=== PATIENT | male | born 1955 | race Caucasian/White ===

== ENCOUNTER 2018-11-20 04:56 | Inpatient (IN) ==
--- NOTE | 2018-10-02 11:22 | Anesthesiology Consultation ---
Date of Service October 02, 2018 Assessment & Plan (1) Encounter for pre-operative examination: Chart Review Chart Review: Acceptable Risk for Surgery and Patient seen in Pre Admission Testing Consults Requested cardiac (for abnormal EKG) Patient was seen by [facility] cardio on 11/04/18 for preoperative evaluation after having an abnormal EKG at [facility]. He did have an ECHO done to further evaluate this, and per note from this visit, "Pending the results of the echo, the patient is at an acceptable risk to proceed with surgery from a cardiovascular standpoint." ECHO done later that morning showed nothing concerning. Will proceed with surgery at this point. Teaching & Discussion Pre-Anesthesia Teaching/Discussion Notes: Instructed NPO after midnight before surgery, except medications with 15 cc of water. Medication instructions provided according to the [facility] guidelines. History Surgery Operation Date: 11/20/18 08:50 Proposed Procedures p Bilateral Total Knee Arthroplasty - Kvng Us MD Height/Weight Height: 5 ft 5 in Weight: 81.9 kg Allergies Allergy/AdvReac Type Severity Reaction Status Date / Time No Known Allergies Allergy Verified 10/02/18 11:02 Medications Home Medications Medication Instructions Recorded Confirmed Last Taken naproxen sodium [Aleve] 220 mg PO BID PRN 10/02/18 10/02/18 Unknown Past Medical History Medical History Osteoarthritis Past Surgical History Surgical History History of tooth extraction NO ANESTHESIA USED No significant past surgical history Past Anesthesia History No Family Hx of Anesthesia Complications Patient has never had any anesthesia. Motion Sickness Screening History of Motion Sickness: Yes (Years ago on an amusement park ride. ) Social History Smoking Status: Never smoker Do You Dip or Chew Tobacco: No Hx Alcohol Use: Yes Alcohol type: beer and hard liquor alcohol intake frequency: a few times a week Hx Substance Use: No substance use type: does not use Exercise / Class Metabolic Activity II 4-5 Yardwork/Stairs/Walk up hill (Hunts, rides bicycle in the summer. Able to climb FOS. Denies CP or SOB. ) Review of Systems Patient denies chest pain, shortness of breath, dyspnea on exertion, reflux, cough, wheezing, palpitations. +Joint pain (Knees, wrists) Physical Exam Vital Signs BP: 172/81 (advised - pt states he is always nervous at doctors) P: 62 R: 20 T: 98.1 SPO2: 97% on RA ENMT Thyromental Distance: < 3.5 Finger Breadths (3) Mallampati Class: II Neck normal visual inspection and trachea midline; neck extension not limited Respiratory normal respiratory effort Auscultation: lungs clear to auscultation bilaterally Cardiovascular Rate/Rhythm: regular rate and regular rhythm Heart Sounds: no murmur Vessels: no carotid bruit Neurologic moves all extremities Psychiatric Orientation: alert and oriented x 3 Testing Electrocardiogram Date: 10/02/18 Findings: + NSR @ (63) ST & T wave abnormality, consider inferior ischemia. Chest X-Ray Date: 10/02/18 Findings: + NAD FINDINGS: The cardiac and mediastinal contours are normal. There is no evidence of focal pulmonary consolidation. There is no evidence of failure. No pleural effusions are visualized. There is a prominent left cardiophrenic angle fat pad. IMPRESSION: No active disease in the chest. Echocardiogram Date: 11/04/18 EF: 65-70% LV Function: normal RWMA: + none Other Findings: + LVH (Mild concentric) Valvular Disease: + MR (Mild) INTERPRETATION SUMMARY: 1. Normal left ventricular size and systolic function. EF 65-70%. No regional wall motion abnormalities. Mild concentric left ventricular hypertrophy. 2. Mild left atrial dilation. 3. There is mild mitral regurgitation. 4. Normal estimated right ventricular systolic pressure. Laboratory Results 10/02/18 10:54 10/02/18 10:54 Blood Type B Positive 10/02/18 10:54 Antibody Screen NEGATIVE 10/02/18 10:54 PT 10.6 Seconds (9.0-12.0) 10/02/18 10:54 INR 1.0 (0.9-1.1) 10/02/18 10:54 APTT 25.5 Seconds (21.0-31.0) 10/02/18 10:54 Hemoglobin A1c 6.0 % (4.5-5.6) H 10/02/18 11:54
--- NOTE | 2018-10-02 11:23 | PAT Medication Instructions ---
Medication Instructions Date of Service October 02, 2018 Home Medications naproxen sodium [Aleve] 220 mg PO BID PRN ASK your surgeon for instructions naproxen sodium [Aleve] 220 mg PO BID PRN Take morning of surgery NOTHING TO EAT OR DRINK AFTER MIDNIGHT Other Notes If you have any questions please call us at [phone] or [phone] or [phone] or [phone]
[2018-10-02 11:40] LABS: Basophils # (auto) 0.05 K/uL (0-0.2); Basophils % (auto) 0.8 %; Eosinophils # (auto) 0.13 K/uL (0-0.5); Hematocrit (blood only) 41.3 % (42-52); Hemoglobin 14.7 g/dL (14.0-18.0); Lymphocytes # (auto) 1.62 K/uL (1.2-3.4); Lymphocytes % (auto) 24.5 %; Mean Corpuscular Hgb Conc 35.6 g/dL (32-36); Mean Corpuscular Volume 90.2 fL (80-100); Mean Platelet Volume 9.6 fL (7.4-10.4); Monocytes # (auto) 0.62 K/uL (0.11-0.59); Monocytes % (auto) 9.4 %; Neutrophils # (auto) 4.19 K/uL (1.4-6.5); Neutrophils % (auto) 63.3 %; Platelet Count 223 K/uL (130-400); RDW Coefficient of Variation 13.2 % (11.5-14.5); RDW Standard Deviation 43.3 fL (36.4-46.3); Red Blood Count 4.58 M/uL (4.7-6.1); White Blood Count 6.61 K/uL (4.8-10.8)
[2018-10-02 11:47] LABS: Calcium 8.7 mg/dl (8.5-10.1); Creatinine Clr Calc Pharmacy 99.3 ml/min; Est GFR (African American) 113.2; Est GFR (Non-African American) 97.6; Potassium 3.8 mmol/L (3.5-5.1)
--- NOTE | 2018-10-02 11:50 | XRay Report ---
XR chest Pre-admission PA/Lat CLINICAL HISTORY: Preoperative chest COMPARISON STUDY: No previous studies for comparison. FINDINGS: The cardiac and mediastinal contours are normal. There is no evidence of focal pulmonary co nsolidation. There is no evidence of failure. No pleural effusions are visualized.[ There is a promin ent left cardiophrenic angle fat pad. IMPRESSION: No active disease in the chest. Electronically signed by: Joshua Saleh M.D. 10/02/2018 11:48 AM
[2018-10-02 11:57] LABS: Partial Thromboplastin Ratio 0.9; Partial Thromboplastin Time 25.5 Seconds (21.0-31.0); Prothrombin Time 10.6 Seconds (9.0-12.0)
[2018-10-03 06:44] LABS: Estimated Average Glucose 126 mg/dl
--- NOTE | 2018-11-14 22:03 | History and Physical Report ---
DATE OF ADMISSION: 11/20/2018 CHIEF COMPLAINT: Bilateral knee pain and discomfort. 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 He has got a long history of bilateral knee pain and discomfort; he describes it has just gotten worse over the years. He describes global pain. Both knees hurt about equally. He has been taking NSAIDs, which really do not help at all anymore. He has become more debilitated and having difficulty doing his job. His knees hurt all the time. He has trouble standing for any significant period of time. He has trouble walking any significant distance over a couple blocks. He has difficulty going up and down steps. He has nighttime pain. He would like to have his knees fixed. PAST MEDICAL HISTORY: Significant for mild obesity with BMI of 30. PAST SURGICAL HISTORY: None. ALLERGIES: None. CURRENT MEDICATIONS: Various anti-inflammatory medicines. SOCIAL HISTORY: A 63-year-old male, patient from [place]. 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 Six drinks per week. Does not smoke. FAMILY HISTORY: Noncontributory. REVIEW OF HISTORY: Negative for diabetes, neurologic problems, vascular problems or bleeding disorders. He does have some hand soreness and some CMC joint arthritis. Probably has some carpal tunnel syndrome as well. PHYSICAL EXAMINATION GENERAL: Shows a pleasant, healthy appearing, middle-aged male. Looks to be in pretty good health. HEENT: Benign. NECK: Supple. No lymphadenopathy. LUNGS: Clear to auscultation. HEART: Has a regular rate and rhythm. ABDOMEN: Soft, nontender, nondistended. EXTREMITIES: Grossly neurovascularly intact except as follows: Examination of both knees reveals the patient ambulates independently. He has got varus alignment to both knees with a varus thrust with weightbearing. Range of motion is 5 degrees short of full extension and 120 degrees of flexion bilaterally. There is no instability. He has no pain with hip motion on either side. He is neurologically intact. Good distal pulses. X-RAYS: X-rays of both knees were reviewed. It shows advanced bilateral knee DJD. He has got complete loss of his medial joint space bilaterally. He has got some destruction of the medial tibial plateaus bilaterally. There is some tibial femoral subluxation. He has got osteophytes, most severe in the medial compartment. 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 He has failed conservative treatment and would really like to have both knees replaced. 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 PLAN: We had a long discussion as far as treatment. We talked about the risks and benefits of knee replacement as well as bilateral knee replacements. He is adamant about proceeding with bilateral knee replacements. He is relatively healthy and I did tell him he is at increased risk for complications particularly with thrombosis and cardiac issues and he understands. He is otherwise healthy and he would like to proceed with bilateral knee replacements. The risks and benefits of bilateral knee replacements were explained to the patient including but not limited to DVT, PE, , infection, neurological injury, vascular injury, bleeding problem, pain, limited range of motion, stiffness, failure to relieve symptoms, incomplete relief of symptoms, need for further surgery in the future, fracture, leg length inequality, nerve palsy, etc. The patient understands and desires to proceed. Informed consent was obtained. As far as discharge planning, he is likely going to look into going to either rehab or [facility] facility, will likely have some home health after that.
--- OUTSIDE RECORDS SUMMARY | 2018-11-20 04:59 | External Medical Summary | Continuity of Care Document ---
:1955 Author Name Adriana M.Carolina Address Unavailable Unavailable , Care Team Providers Name Role Phone Unavailable Unavailable Unavailable PCP, UNKNOWN Unavailable Unavailable Problems Bilateral knee pain (719.46) (M25.561) Pre-operative cardiovascular examination (V72.81) (Z01.810) Abnormal ECG (794.31) (R94.31) Allergies and Adverse Reactions No Known Drug Allergies (Allergy) Medications No Reported Medications , M.D. Refills: 0 Procedures Procedures not documented Immunizations Immunizations not documented Social History - Smoking Status Never smoker Plan of Treatment Planned Observations Planned Goals not documented Results No Known Results Results not documented Vital Signs 04-Nov-2018 10:09 Systolic 140 mm[Hg] Comments: Location: RUE; Position: Sitting Diastolic 90 mm[Hg] Comments: Location: RUE; Position: Sitting Height 64 in Heart Rate 76 /min Comments: Location: R Radial; BMI Calculated 30.9 kg/m2 Weight 180 lb BSA Calculated 1.87 m2 Encounters Appointment; Stress, Echocardiogram 1 04-Nov-2018 11:00 Encounter Diagnosis: Problem not documented Appointment; Angelica Ford PA-C 04-Nov-2018 10:00 Encounter Diagnosis: Problem not documented
[2018-11-20] MEDS ORDERED: FAMOTIDINE 20 MG TAB PO SCH (06:00)
[2018-11-20] MEDS ORDERED: GABAPENTIN 300 MG x 2 PO SCH (06:00)
[2018-11-20] MEDS ORDERED: METOCLOPRAMIDE HCL 10 MG TABLET PO SCH (06:00)
[2018-11-20] MEDS ORDERED: SCOPOLAMINE 1.5 MG TDSY TD SCH (06:00)
[2018-11-20] MEDS ORDERED: LR 60ML/HR IV SCH (06:00)
[2018-11-20] MEDS ORDERED: ACETAMINOPHEN 500 MG TAB PO SCH (06:00)
[2018-11-20] MEDS ORDERED: CEFAZOLIN 2000MG 2,000 MG/15 ML SYR IV SCH (06:00)
[2018-11-20] MEDS ORDERED: BUPIVACAINE LIPOSOME/PF 266 MG, BUPIVACAINE/EPINEPHRINE 50 ML, SODIUM CHLORIDE 0.9% 30 ... INFIL SCH (06:00)
[2018-11-20] MEDS ORDERED: LR 500ML BOLUS, THEN 15ML/HR IV SCH (06:00)
[2018-11-20] MEDS ORDERED: PROPOFOL IV EMULSION 10 MG/ML 20 ML VIAL IV ONE ×4 (06:25→09:17)
[2018-11-20] MEDS ORDERED: MIDAZOLAM HCL 1 MG/ML 2ML VIAL ONE ×3 (06:26→07:18)
[2018-11-20] MEDS ORDERED: fentaNYL citrate 100 MCG/2 ML VIAL ONE (06:26)
[2018-11-20] MEDS ORDERED: EPINEPHrine INJ 1 MG/ML AMP ONE ×2 (06:27→06:41)
[2018-11-20] MEDS ORDERED: BUPIVACAINE 0.5 % 5 MG/1 ML PF 10ML VIAL ONE (06:27)
[2018-11-20] MEDS ORDERED: ROPIVACAINE 0.5% 5 MG/ML 30 ML VIAL ONE (06:27)
[2018-11-20] MEDS ORDERED: TRANEXAMIC ACID 1,000 MG **IV Intra-op IV SCH (06:30)
[2018-11-20] MEDS ORDERED: BACITRACIN INJ 50,000 UNIT VIAL ONE ×2 (06:40→06:54)
[2018-11-20] MEDS ORDERED: BUPIVACAINE LIPOSOME 1.3% 266 MG/20 ML VIAL ONE (06:40)
[2018-11-20] MEDS ORDERED: SODIUM CHLORIDE 0.9% PF 50 ML VIAL ONE (06:40)
[2018-11-20] MEDS ORDERED: BUPIVACAINE 0.25% 30 ML VIAL ONE (06:42)
--- NOTE | 2018-11-20 06:49 | History & Physical Bridge Note ---
Date of Service November 20, 2018 History & Physical Bridge Note I have examined the patient, reviewed the History & Physical and in the interval since the performance of the History & Physical I have noted the following changes of clinical significance: no changes noted
[2018-11-20] MEDS ORDERED: HYDROmorphone INJ 1 MG/ML SYRINGE IV PRN (07:05)
[2018-11-20] MEDS ORDERED: PHENYLEPHRINE 100MCG/ML 5ML SYR IV PRN (07:05)
[2018-11-20] MEDS ORDERED: LABETALOL HCL IV 5 MG/ML 20ML IV PRN (07:05)
[2018-11-20] MEDS ORDERED: ATROPINE SULFATE 0.1 MG/ML 10ML SYR IV PRN (07:05)
[2018-11-20] MEDS ORDERED: ePHEDrine sulfate 50 MG/ML AMP IV PRN (07:05)
[2018-11-20] MEDS ORDERED: fentaNYL citrate 100 MCG/2 ML VIAL IV PRN (07:05)
[2018-11-20] MEDS ORDERED: ONDANSETRON INJ 2 MG/ML 2 ML VIAL IV PRN ×2 (07:05→11:06)
[2018-11-20] MEDS ORDERED: PHENYLEPHRINE HCL 10 MG/ML VIAL ONE (07:42)
--- NOTE | 2018-11-20 10:06 | Post Operative Brief Note ---
Immediate Post Op Note v1 Date of Surgery November 20, 2018 Pre & Post Diagnosis Operation Date: 11/20/18 07:00 Pre-Op Diagnosis: Bilateral Knee Degenerative Joint Disease Post-Op Diagnosis: Bilateral Knee Degenerative Joint Disease Procedure Operation Date: 11/20/18 07:00 Actual Procedures p Bilateral Total Knee Replacements(Bilateral) - Kvng Us MD Surgeon Kvng Us MD Insulation Worker Apprentice Jesus, PAC Estimated Blood Loss 100 Findings Consistent with Post-Op Diagnosis Fluids 1800 cc Specimens Bilateral Knees Anesthesia Type Spinal MAC Complications none Disposition Accompanied Patient To Recovery: Yes Disposition: Recovery Room
--- NOTE | 2018-11-20 10:41 | XRay Report ---
XR knee RT 2V routine CLINICAL HISTORY: 63 years-old Male presenting with post-op. TECHNIQUE: Frontal and lateral views of the right knee were obtained. COMPARISON: 10/02/2018. FINDINGS: Interval total right knee arthroplasty with patellar resurfacing. Expected intra-articular and soft t issue emphysema. Overlying skin monty. No periprosthetic lucency or fracture. No malalignment. IMPRESSION: Expected postsurgical appearance status post total right knee arthroplasty with patellar resurfacing. Electronically signed by: Driss Gillis M.D. 11/20/2018 10:40 AM
--- NOTE | 2018-11-20 10:41 | XRay Report ---
XR knee LT 2V routine CLINICAL HISTORY: 63 years-old Male presenting with Post op, bilateral knee arthroplasties. TECHNIQUE: Frontal and lateral views of the left knee were obtained. COMPARISON: 10/02/2018. FINDINGS: Interval postsurgical change of total left knee arthroplasty with patellar resurfacing. Expected intr a-articular and soft tissue emphysema. Overlying skin monty in place. No periprosthetic lucency or fracture. No malalignment. IMPRESSION: Expected postsurgical appearance status post total left knee arthroplasty with patellar resurfacing. Electronically signed by: Driss Gillis M.D. 11/20/2018 10:39 AM
--- NOTE | 2018-11-20 11:00 | Anesthesiology Progress Note ---
Date of Service November 20, 2018 Anesthesia Post Procedure Vital Signs Vital Signs: Temp Pulse Pulse Resp BP Pulse Ox 11/20/18 10:35 36.6 C 61 18 112/67 94 11/20/18 10:25 68 14 121/75 97 11/20/18 10:15 70 15 116/85 99 11/20/18 10:09 36.5 C 78 12 107/87 97 11/20/18 05:40 36.6 C 70 20 163/94 H 95 Pain Intensity Bilateral Knee: Pain Intensity: 2 Transfer of Care Handoff Completed per policy Notes Mental Status: alert / awake / arousable Patient Amnestic to Procedure: Yes Nausea / Vomiting: adequately controlled Pain: adequately controlled Airway Patency, RR, SpO2: stable & adequate BP & HR: stable & adequate Hydration State: stable & adequate Neuraxial Anesthesia: was administered and sensory block is resolving Anesthetic Complications: no major complications apparent and Pt Satisfied with anesthetic care
[2018-11-20] MEDS ORDERED: HYDROmorphone INJ 0.5 MG/0.5 ML SYR IV PRN (11:06)
[2018-11-20] MEDS ORDERED: MAGNESIUM HYDROXIDE SUSP 30 ML UDC PO PRN (11:06)
[2018-11-20] MEDS ORDERED: BISACODYL 10 MG SUPP PR PRN (11:06)
[2018-11-20] MEDS ORDERED: NALOXONE HCL 0.4 MG/1 ML VIAL/CARP IV PRN (11:06)
[2018-11-20] MEDS ORDERED: METOCLOPRAMIDE HCL INJ 5 MG/ML 2 ML VIAL IV PRN (11:06)
[2018-11-20] MEDS ORDERED: ALUMINUM/MAGNESIUM SUSP 30 ML UDC PO PRN (11:06)
[2018-11-20] MEDS ORDERED: TAMSULOSIN HCL 0.4 MG CAP PO PRN (11:06)
[2018-11-20] MEDS ORDERED: OXYCODONE HCL IR 5 MG TAB (IMMEDIATE RELEASE) PO PRN (11:06)
[2018-11-20] MEDS ORDERED: SODIUM CHLORIDE 0.9% 1000ML 1,000 ML IV SCH (11:30)
[2018-11-20] MEDS: ACETAMINOPHEN 500 MG TAB PO SCH ×2 (12:44→22:17)
[2018-11-20] MEDS: KETOROLAC 30 MG/ML VIAL IV SCH ×2 (12:44→17:15)
--- NOTE | 2018-11-20 13:27 | Progress Note ---
DATE: 11/20/2018 SUBJECTIVE: A 63-year-old gentleman postop from bilateral knee replacements. He is doing well. Just starting to have a little bit of discomfort in his legs. Nothing severe. No chest pain or shortness of breath. Not feeling dizzy or lightheaded. OBJECTIVE: VITAL SIGNS: Temperature 36.4. Vital signs stable. GENERAL: Reveals a pleasant, middle-aged male. He is sitting up in bed and eating his lunch and talking to his . LUNGS: Clear to auscultation. HEART: Regular rate and rhythm. ABDOMEN: Soft, nontender, nondistended. EXTREMITIES: Grossly neurovascularly intact except as follows. Examination of both lower extremities reveals the legs to be well aligned. Dressings are clean, dry and intact. He can dorsiflex and plantarflex both feet and all toes appropriately. He is neurologically and vascularly intact on both sides. X-RAYS: X-rays of both knees reveal bilateral cemented posterior stabilized total knee arthroplasty. Components looked to be in good position. Knee alignment looks good. No signs of problems. ASSESSMENT: A 63-year-old gentleman postop from bilateral knee replacements, doing well. His pain is controlled. He is neurologically intact. PLAN: 1. DVT prophylaxis including thigh high TEDs, SCDs and aspirin twice a day. 2. PT/OT. Weight bear as tolerated. Total knee protocol. 3. IV antibiotics x24 hours. 4. Pain control, doing well with current pain regimen. 5. Disposition. He is hoping to be discharged to home with some home health if he does okay in therapy. We will see how things come along. He might need a rehab stay.
[2018-11-20] MEDS: CEFAZOLIN 2000MG 2,000 MG/15 ML SYR IV SCH ×2 (14:22→22:17)
[2018-11-20] MEDS: ASCORBIC ACID 500 MG TAB PO SCH (16:04)
[2018-11-20] MEDS: FERROUS GLUCONATE 324 MG TAB PO SCH (16:04)
[2018-11-20] MEDS: CHECK SCOPOLAMINE PATCH PLACEMENT SCH (16:04)
[2018-11-20] MEDS ORDERED: TRANEXAMIC ACID 1,000 MG in 0.9 % SODIUM CHLORIDE 100 ML IV SCH (16:07)
[2018-11-20] MEDS: DOCUSATE SODIUM 100 MG CAP PO SCH (20:25)
[2018-11-20] MEDS: TAPENTADOL HCL ER 50 MG TABCR PO SCH (20:25)
[2018-11-20] MEDS: ASPIRIN 81 MG ECTAB PO SCH (20:25)
[2018-11-20] MEDS: SENNA 8.6 MG TAB PO SCH (20:25)
[2018-11-21] MEDS: KETOROLAC 30 MG/ML VIAL IV SCH ×5 (00:19→23:58)
[2018-11-21] MEDS: CHECK SCOPOLAMINE PATCH PLACEMENT SCH (00:22)
--- NOTE | 2018-11-21 04:03 | Operative Report ---
DATE OF OPERATION: 11/20/2018 SURGEON: Kvng Us M.D. SILK CREPE MACHINE OPERATOR: Leticia Hurtado PREOPERATIVE DIAGNOSIS: Bilateral knee degenerative joint disease. POSTOPERATIVE DIAGNOSIS: Same. PROCEDURE PERFORMED: Bilateral cemented posterior stabilized total knee arthroplasty. COMPLICATIONS: None. ESTIMATED BLOOD LOSS: 100 mL. FLUID REPLACEMENT: 1800 mL crystalloid fluid replacement. TOURNIQUET TIME: Left side tourniquet: 58 minutes at 300 mmHg. Right side tourniquet: 58 minutes at 300 mmHg. ANESTHESIA: Spinal. DRAINS: None. SPECIMENS: Bilateral knees sent for pathology. 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 He has difficulty walking, weightbearing, kneeling, and doing just functional daily activities. He has been through conservative care without much relief at all. He elected to proceed with surgical treatment. X-rays did reveal advanced bilateral knee DJD. OPERATIVE FINDINGS: Operative findings revealed advanced bilateral knee DJD. Extensive grade 4 [id number] changes primarily in the medial compartment of both knees. He had fixed varus deformities on both sides with medial tibial plateau wear on both sides. A moderate to large knee joint effusions. OPERATIVE IMPLANTS: Left-sided implants consisted of: 1. Biomet Vanguard size 67.5 left posterior stabilized femoral component. 2. Biomet size 75 tibial tray. 3. A 12 mm posterior stabilized polyethylene insert. 4. A 28 x 8 all poly patella. Right-sided implants: 1. A Biomet Vanguard size 67.5 right posterior stabilized femoral component. 2. A Biomet size 75 tibial tray. 3. A 12 mm posterior stabilized polyethylene insert. 4. A 28 x 8 all poly patella. OPERATIVE PROCEDURE: The patient taken to the operating room, identified and placed on the operative table in supine position. All contact areas were appropriately padded. IV antibiotics were provided by the anesthesia team. A spinal anesthetic had been implemented in the holding area. Ba catheter was placed in sterile fashion. Bilateral thigh-high tourniquets were then placed and both lower extremities were then prepped and draped in usual sterile fashion. Attention was first drawn to the left leg. Left leg was elevated and exsanguinated with Esmarch and tourniquet was placed at 300 mmHg. An anterior approach to the left knee was then performed through a longitudinal incision centered over the patella. Sharp dissection was carried through subcutaneous tissues down to the level of the extensor mechanism. A medial parapatellar arthrotomy incision was made. Subperiosteal dissection was carried out medially. I did a pretty extensive dissection medially in order to free up these tight medial side of his knee. The fat pad resected from beneath the patellar tendon. The lateral patellofemoral ligament was released. The patella was everted and knee was flexed. The osteophytes were taken off the distal femur. The ACL and PCL were then released from the distal femur. The tibia subluxated anteriorly. The external tibial alignment jig was then placed in the anterior face of the tibia and adjusted 16 mm medially. Proximal tibial cut was made essentially flush with the most deficient aspect of the medial tibial plateau. Some osteophytes were taken off medial and posteromedially. Tibia was then sized to a size 75. Attention was then drawn to the femur. The distal femur was entered with a sharp drill. Intramedullary canal was suctioned. A 6-degree left intramedullary valgus cutting guide was placed. Distal femoral cutting block was pinned in place. Distal femoral cut was made to take an additional 3 mm of bone off the distal femur. The femur was then sized to a size 67.5. We did downsize this slightly. The AP cutting block was pinned parallel to the epicondylar axis, which was 5 degrees of external rotation. The anterior cut, anterior chamfer, posterior cut, and posterior chamfer cuts were made. Box cutting guide was placed and adjusted slightly lateral and the box cut was made. The knee was flexed. The remnants of the medial and lateral menisci were excised. The osteophytes were taken off the posterior aspect of the femur. A trial femoral component was placed. The tibial tray was pinned in maximum external rotation and the drill and stem punch were used to create defect in proximal tibia for the tibial tray. The knee was then trialed and a 12 mm insert fit most appropriately. Attention was then drawn to the patella. The patella was cleaned of all soft tissues. Patella thickness measured 23 mm in thickness, it was cut down to 13. It was sized to a size 28 patella. Lug holes were drilled for a 28 patella. Lateral osteophyte was removed. Patella button was placed. Knee was taken through range of motion, patella tracked nicely with no thumbs test. Attention was then drawn toward placement of the permanent components. All trial components were removed. A bone plug was placed in the distal femur to limit blood loss. A double batch of Palacos G cement was mixed. A Biomet Vanguard size 67.5 left posterior stabilized femoral component, size 75 tibial tray, 12 mm posterior stabilized polyethylene insert, and a 28 x 8 all poly patella were then cemented in place. Knee was brought out into full extension until cement hardened. A final cement check was then performed. The knee was then injected with 50 mL of a combination of 10 mL of Exparel, 25 mL of 0.5% Marcaine with epinephrine, and 20 mL of normal saline. The patient did receive 1 gram of tranexamic acid. The tourniquet was then let down for final tourniquet time of 58 minutes. Hemostasis was assured with use of electrocautery. Extensor mechanism was then closed with combination of #1 PDS suture and #1 Vicryl suture in a [id number] fashion. Extensor mechanism was checked and found to be intact. The subcutaneous tissue was then closed with 2 Dexon suture in a buried interrupted fashion. Skin was closed with skin monty. Leg was then cleaned, dried, and a sterile dressing of Xeroform, 4 x 4's, sterile cast padding, and an Lino bandage were applied. During closure of the subcutaneous tissues and skin of the left knee, a similar procedure was begun on the right knee. The right leg was elevated and exsanguinated with Esmarch and tourniquet was placed at 300 mmHg. An anterior approach of the right knee was then performed through a longitudinal incision. Sharp dissection was carried through the subcutaneous tissues down to the level of the extensor mechanism. Medial parapatellar arthrotomy incision was made. Some subperiosteal dissection was carried out medially. I did a pretty extensive dissection medially and posteromedially to release the tight medial side. The fat pad resected from beneath the patellar tendon. The lateral patellofemoral ligament was released. The patella was everted and knee was flexed. The osteophytes were taken off the distal femur. The ACL and PCL were released from the distal femur and the tibia subluxated anteriorly. External tibial alignment jig was then placed in the anterior face of the tibia and adjusted 16 mm medially. The proximal tibial cut was made essentially flush with the most deficient aspect of the posteromedial tibial plateau. This did take a fairly large piece off laterally. Some osteophytes were taken off medially. The tibia sized to a size 75. Attention was then drawn to the femur. The distal femur was entered with a sharp drill bit. Intramedullary canal was suctioned. A right 6-degree valgus cutting guide was placed. Distal femoral cutting block was pinned in place. Distal femoral cut was made to take an additional 3 mm of bone off the distal femur. The femur was then sized to a size 67.5. We did downsize this slightly. The AP cutting block was pinned parallel to the epicondylar axis, which was 3 degrees of external rotation. The anterior cut, anterior chamfer, posterior cut, posterior chamfer cuts were made. Box cutting guide was placed and adjusted slightly lateral and the box cut was made. The knee was flexed. The remnants of medial and lateral menisci were excised. The osteophytes were taken off the posterior aspect of the femur. A trial femoral component was placed and the tibial tray was pinned in maximum external rotation and the drill and stem punch were used to create defect in proximal tibia for the tibial tray. The knee was then trialed and the 12 mm insert fit most appropriately. Attention was then drawn to the patella. The patella was cleaned of all soft tissues. Patella thickness measured 23 mm in thickness. It was cut down to 13. It was sized to a size 28 patella. Lug holes were drilled for a 28 patella. Lateral osteophyte was removed. Patella button was placed. Knee was taken through range of motion, patella tracked nicely with no thumbs test. Attention was then drawn toward placement of the permanent components. All trial components were removed. Bone plug was placed in the distal femur to limit blood loss. A double batch of Palacos G cement was mixed. A Biomet Vanguard size 67.5 right posterior stabilized femoral component, size 75 tibial tray, a 12 mm posterior stabilized polyethylene insert, size 28 x 8 all poly patella were then cemented in place. Knee was brought into full extension until cement hardened. A final cement check was then performed. The pericapsular tissues were injected with 50 mL of a combination of 10 mL of Exparel, 25 mL of 0.5% Marcaine with epinephrine and 15 mL of normal saline. The tourniquet was then let down for final tourniquet time of 58 minutes. Hemostasis was assured with use of electrocautery. The extensor mechanism was then closed with a combination of #1 PDS suture and #1 Vicryl suture in [id number] fashion. Extensor mechanism was checked and found to be intact. The subcutaneous tissue was then closed with 2 Dexon suture in a buried interrupted fashion. Skin was closed with skin monty. Leg was then cleaned and dried and a sterile dressing of Xeroform, 4 x 4, sterile cast padding, and Lino bandage were applied. The patient then transferred to the recovery room in stable condition. The patient tolerated the procedure well with no complications. All needle and sponge counts were correct at the end of the operation. I attest to the content of the Intraoperative Record and any orders documented therein. Any exception s are noted below.
[2018-11-21] MEDS: ACETAMINOPHEN 500 MG TAB PO SCH ×3 (05:48→22:26)
[2018-11-21 07:01] LABS: Hematocrit (blood only) 31.8 % (42-52); Hemoglobin 11.3 g/dL (14.0-18.0); Mean Corpuscular Hgb Conc 35.5 g/dL (32-36); Mean Corpuscular Volume 89.6 fL (80-100); Mean Platelet Volume 8.8 fL (7.4-10.4); Platelet Count 191 K/uL (130-400); RDW Coefficient of Variation 13.2 % (11.5-14.5); RDW Standard Deviation 43.4 fL (36.4-46.3); Red Blood Count 3.55 M/uL (4.7-6.1); White Blood Count 7.65 K/uL (4.8-10.8)
[2018-11-21 07:53] LABS: BUN Creatinine Ratio 14.4 (10-20); Est GFR (African American) 108.9; Est GFR (Non-African American) 93.9; Potassium 3.9 mmol/L (3.5-5.1)
--- NOTE | 2018-11-21 08:25 | Anesthesiology Progress Note ---
Date of Service November 21, 2018 Anesthesia Post Procedure Vital Signs Vital Signs: Temp Pulse Pulse Resp BP BP Pulse Ox 11/21/18 06:48 36.6 C 78 18 145/78 H 96 11/21/18 03:29 37.6 C H 77 16 113/69 94 11/20/18 23:00 37.5 C 56 L 16 148/72 H 91 11/20/18 15:03 36.3 C L 54 L 16 174/82 H 98 11/20/18 14:25 54 L 16 153/83 H 96 11/20/18 13:00 52 L 16 162/86 H 97 11/20/18 12:00 47 L 17 169/70 H 95 11/20/18 11:29 44 L 16 134/73 95 11/20/18 11:00 36.4 C L 66 16 131/69 97 11/20/18 10:35 36.6 C 61 18 112/67 94 11/20/18 10:25 68 14 121/75 97 11/20/18 10:15 70 15 116/85 99 11/20/18 10:09 36.5 C 78 12 107/87 97 Pain Intensity Bilateral Knee: Pain Intensity: 2 Transfer of Care Handoff Completed per policy Notes Mental Status: alert / awake / arousable Patient Amnestic to Procedure: Yes Nausea / Vomiting: adequately controlled Pain: adequately controlled Airway Patency, RR, SpO2: stable & adequate BP & HR: stable & adequate Neuraxial Anesthesia: was administered and sensory block is resolving Anesthetic Complications: no major complications apparent Notes: POD #1. Doing well. No complaints. VSS
--- NOTE | 2018-11-21 08:39 | Progress Note ---
DATE: 11/21/2018 SUBJECTIVE: A 63-year-old gentleman postop day 1 from bilateral knee replacement. He is doing well. Really not having much pain. No chest pain or shortness of breath. Not feeling dizzy or lightheaded. OBJECTIVE: VITAL SIGNS: Temperature 36.6. Vital signs stable. GENERAL: Physical examination shows a pleasant, middle-aged male. He is sitting up in his bed eating breakfast. He looks pretty comfortable. EXTREMITIES: Examination of both legs reveals the dressing to be clean, dry and intact. Legs are well aligned. He can dorsiflex and plantarflex both feet appropriately. He is neurologically intact. He has got brisk refill bilaterally. LABORATORY DATA: Hemoglobin 11.3. Hematocrit 31.8. Electrolytes are stable. ASSESSMENT: A 63-year-old gentleman postop day 1 from bilateral knee replacements, doing well. His pain is controlled. He is neurologically intact. PLAN: 1. DVT prophylaxis including thigh-high TEDs, SCDs, and aspirin twice a day. 2. PT/OT. Weightbear as tolerated. Bilateral knee protocol. 3. Pain control, doing well with current pain regimen. 4. Disposition: He is hoping to be discharged to home with some home health once adequately recovered.
[2018-11-21] MEDS: FERROUS GLUCONATE 324 MG TAB PO SCH ×2 (09:08→17:56)
[2018-11-21] MEDS: ASCORBIC ACID 500 MG TAB PO SCH ×2 (09:08→17:56)
[2018-11-21] MEDS: ASPIRIN 81 MG ECTAB PO SCH ×2 (09:08→21:55)
[2018-11-21] MEDS: DOCUSATE SODIUM 100 MG CAP PO SCH ×2 (09:08→21:55)
[2018-11-21] MEDS: MULTIVITAMIN TAB PO SCH (09:09)
[2018-11-21] MEDS: TAPENTADOL HCL ER 50 MG TABCR PO SCH ×2 (09:09→21:55)
[2018-11-21] MEDS: SENNA 8.6 MG TAB PO SCH (21:55)
[2018-11-22] MEDS: ACETAMINOPHEN 500 MG TAB PO SCH (06:07)
[2018-11-22] MEDS: KETOROLAC 30 MG/ML VIAL IV SCH (06:08)
--- NOTE | 2018-11-22 08:41 | Progress Note ---
DATE: 11/22/2018 SUBJECTIVE: A 63-year-old gentleman postop day 2 from bilateral knee replacement. He is doing pretty well. Pain has been controlled. Therapy has gone well. No chest pain or shortness of breath. Not feeling dizzy or lightheaded. OBJECTIVE: VITAL SIGNS: Temperature 37.3. Vital signs stable. GENERAL: Physical examination shows a pleasant, middle-aged male. He is sitting up in bed, looks pretty comfortable. EXTREMITIES: Examination of both legs reveals the leg to be well aligned. Dressing is clean, dry and intact. Calves are soft and supple. He can dorsiflex and plantarflex his feet appropriately. He is neurologically intact. ASSESSMENT: A 63-year-old gentleman postop day 2 from bilateral knee replacements, doing well. His pain is controlled. He is neurologically intact. PLAN: 1. DVT prophylaxis including thigh-high TEDs, SCDs, and aspirin twice a day. 2. PT/OT. Weight bear as tolerated. 3. Bilateral knee replacement protocol. 4. Pain control, doing well with current pain regimen. 5. Disposition: Plan to discharge to home with some home health likely later today.
[2018-11-22] MEDS: FERROUS GLUCONATE 324 MG TAB PO SCH (09:05)
[2018-11-22] MEDS: ASPIRIN 81 MG ECTAB PO SCH (09:05)
[2018-11-22] MEDS: ASCORBIC ACID 500 MG TAB PO SCH (09:05)
[2018-11-22] MEDS: DOCUSATE SODIUM 100 MG CAP PO SCH (09:05)
[2018-11-22] MEDS: MULTIVITAMIN TAB PO SCH (09:05)
[2018-11-22] MEDS: TAPENTADOL HCL ER 50 MG TABCR PO SCH (09:05)
--- NOTE | 2018-11-24 01:21 | Discharge Summary ---
ADMITTING PHYSICIAN AND SURGEON: Kvng Us MD. ADMITTING DIAGNOSIS: Bilateral knee degenerative joint disease. SURGERY PERFORMED: Bilateral total knee arthroplasty. SECONDARY DIAGNOSIS: Mild obesity. CONSULTS: None obtained. HISTORY AND PHYSICAL EXAMINATION: Well documented in the patient's chart. HOSPITAL COURSE: The patient was admitted on 11/20/2018 underwent bilateral total knee arthroplasty, tolerated the procedure well. There were no complications. He was transferred to the PACU postoperatively and later to the orthopedic floor for further care. He was given Ancef for antibiotic prophylaxis, GAURI stockings, SCDs and aspirin for DVT prophylaxis. Hemoglobin, hematocrit and vital signs were monitored during his hospital stay and remained stable, did not require any blood transfusions. There were no complications. By postoperative day 2, he was tolerating a regular diet, pain was controlled with oral pain medicine. He was participating in physical therapy. On postop day 2, he was discharged home, set up with home health services, he is given printed discharge instructions including new prescriptions for Extra Strength Tylenol, aspirin and oxycodone. Continue his home medication, continue physical therapy, weightbearing as tolerated, GAURI stockings. Follow up approximately 2 weeks postop or sooner if there are any problems or concerns.
== END 2018-11-22 11:50 | disposition home health service (06) | DRG 462 ==
LOC: PAT 04:56 → ASU 04:56 → 3E 10:09

== ENCOUNTER 2021-05-31 23:22 | Observation (INO) ==
[2021-05-31] MEDS ORDERED: SODIUM CHLORIDE 0.9% 500 ML IV ONE (23:38)
--- NOTE | 2021-05-31 23:45 | Emergency Department Note ---
History of Present Illness General Chief complaint: Cough Stated complaint: [id number] APPETITE Time Seen by Provider: 05/31/21 23:33 History of Present Illness Maximum Pain Intensity: 9 This 65-year-old presents to the ER complaining of flu-like illness Location: Generalized Quality: Congested Severity: Moderate Duration: Past few weeks Timing: Started few weeks ago Context: Symptoms got worse and patient came in Modifying factors: better with rest; worse with activity Patient is unvaccinated for Covid and influenza. Has been around other sick people. He does not know they have had Covid. Patient complains of cough, congestion, dyspnea and generalized illness. Patient states he is healthy with no active medical problems besides high cholesterol. Patient denies tobacco use. No drug use. Home Medications Medication Instructions Recorded Confirmed Type naproxen sodium 220 mg tablet 220 - 440 mg PO DAILY PRN 10/02/18 06/01/21 History (Aleve) amoxicillin 500 mg tablet 2,000 mg PO UD 06/01/21 06/01/21 History rosuvastatin 10 mg tablet 10 mg PO DAILY 06/01/21 06/01/21 History Allergies Allergy/AdvReac Type Severity Reaction Status Date / Time No Known Allergies Allergy Verified 06/01/21 00:37 Past Med/Surg History Medical History (Updated 06/01/21 @ 02:28 by Bernarda Clinton PA-C) Osteoarthritis Temporomandibular joint disorder "NOT TOO BAD" Surgical History History of tooth extraction NO ANESTHESIA USED History of total knee replacement BILAT Social History Smoking Status: Never smoker Second Hand Exposure: No; Hx Alcohol Use: Yes Alcohol type: beer, wine and hard liquor Hx Substance Use: No Preferred Language: Albanian Communication Ability: Effective Purchasing Intern Required: No Beliefs That Will Affect Care: None Current Living Situation: Spouse Feels Safe at Home: Yes Assistive Devices: Glasses Review of Systems A total of 10 systems reviewed and were otherwise negative Physical Exam Vital Signs Vital Signs - 24 hr 05/31/21 23:25 06/01/21 01:02 06/01/21 01:10 Temperature 36.5 C Temperature Source Temporal Artery Scan Pulse Rate 110 H 92 H Pulse Rate [Finger] Pulse Rate from SpO2 Sensor 92 H Respiratory Rate 24 Respiratory Effort / Characteristics Non-Labored Respiratory Depth Blood Pressure 168/105 H Blood Pressure [Left Arm] Blood Pressure Mean 126 Blood Pressure Mean [Left Arm] Pulse Oximetry 92 92 92 Oxygen Delivery Method Room Air Sepsis New/Unexplained Change in Mental Status N/A Sepsis Action Taken by Nursing No Action Required 06/01/21 01:20 06/01/21 01:45 06/01/21 01:46 Temperature Temperature Source Pulse Rate 88 Pulse Rate [Finger] 94 H Pulse Rate from SpO2 Sensor 89 Respiratory Rate 20 Respiratory Effort / Characteristics Non-Labored Respiratory Depth Normal Blood Pressure Blood Pressure [Left Arm] 179/98 H Blood Pressure Mean Blood Pressure Mean [Left Arm] 125 Pulse Oximetry 93 91 94 Oxygen Delivery Method Room Air Sepsis New/Unexplained Change in Mental Status Sepsis Action Taken by Nursing 06/01/21 01:48 06/01/21 01:50 06/01/21 02:00 Temperature Temperature Source Pulse Rate 94 H 94 H Pulse Rate [Finger] Pulse Rate from SpO2 Sensor 94 H Respiratory Rate 20 Respiratory Effort / Characteristics Respiratory Depth Blood Pressure 157/95 H Blood Pressure [Left Arm] Blood Pressure Mean 115 Blood Pressure Mean [Left Arm] Pulse Oximetry 94 94 93 Oxygen Delivery Method Room Air Sepsis New/Unexplained Change in Mental Status Sepsis Action Taken by Nursing 06/01/21 02:10 06/01/21 02:17 06/01/21 02:20 Temperature Temperature Source Pulse Rate 94 H 94 H Pulse Rate [Finger] Pulse Rate from SpO2 Sensor 92 H 93 H Respiratory Rate 46 H 20 45 H Respiratory Effort / Characteristics Non-Labored Spontaneous Respiratory Depth Blood Pressure Blood Pressure [Left Arm] Blood Pressure Mean Blood Pressure Mean [Left Arm] Pulse Oximetry 93 94 93 Oxygen Delivery Method Room Air Sepsis New/Unexplained Change in Mental Status Sepsis Action Taken by Nursing 06/01/21 02:27 06/01/21 02:45 Temperature Temperature Source Pulse Rate Pulse Rate [Finger] 96 H Pulse Rate from SpO2 Sensor Respiratory Rate 22 Respiratory Effort / Characteristics Non-Labored Spontaneous Spontaneous Respiratory Depth Blood Pressure Blood Pressure [Left Arm] Blood Pressure Mean Blood Pressure Mean [Left Arm] Pulse Oximetry 94 93 Oxygen Delivery Method Room Air Room Air Sepsis New/Unexplained Change in Mental Status Sepsis Action Taken by Nursing VITALS: Vitals are noted on the nurse's note and reviewed by myself. Vital signs pulse ox 92% on room air. GENERAL: White male coughing appears mildly ill, in no acute distress, nondiaphoretic, well-developed well-nourished. SKIN: The skin was without rashes, erythema, edema, or bruising. There is no tenting of the skin. Capillary reflex less than 2 seconds. HEAD: Normocephalic atraumatic. EARS: External auditory canals clear EYES: Pupils equal round and reactive to light and accommodation. Conjunctivae without injection, sclerae without icterus. Extraocular movements intact. NOSE: Patent, turbinates without inflammation or discharge. MOUTH: Mucous membranes moist. Pharynx without erythema or exudate. Uvula midline. Airway patent. Tongue does not deviate. NECK: Supple without nuchal rigidity. No lymphadenopathy. No thyromegaly. Cervical spine is nontender. No JVD. HEART: Regular rate and rhythm LUNGS: Clear to auscultation bilaterally without wheezes, rales or rhonchi. No retractions or accessory muscle use. ABDOMEN: Positive bowel sounds x 4. Normal tympanic percussion. Soft, nontender, without masses or organomegaly. Salmon sign negative. No guarding or rebound tenderness. No CVA tenderness MUSCULOSKELETAL: No muscle atrophy, erythema, or edema noted. NEURO: Patient was alert and oriented to person place and time. Normal sensation to light and sharp touch. No focal neurological deficits. Course Administered Medications Discontinued Medications Albuterol (Albut/Ipratrop 3mg/0.5mg Neb 3 Ml Vial) 3 ml NEB NOW STA Stop: 06/01/21 02:30 Last Admin: 06/01/21 02:45 Dose: 3 ml Documented by: [id number] Sodium Chloride (Nss) 500 mls @ 999 mls/hr IV .Q31M ONE Stop: 06/01/21 00:08 Last Infusion: 06/01/21 02:07 Dose: 0 mls/hr Documented by: [id number] Admin: 06/01/21 00:55 Dose: 999 mls/hr Documented by: [id number] Medical Decision Making Medical Records Attestation: I reviewed the patient's medical records. Home Medications Current Medication List: was personally reviewed by me Laboratory Data Attestation: I reviewed the patient's lab results. Result diagrams: 06/01/21 00:45 06/01/21 00:45 Lab Results 06/01/21 06/01/21 06/01/21 Range/Units 00:45 00:45 00:45 WBC 13.80 H (4.8-10.8) K/uL RBC 4.56 L (4.7-6.1) M/uL Hgb 14.4 (14.0-18.0) g/dL Hct 41.4 L (42-52) % MCV 90.8 (80-100) fL MCH 31.6 (25-34) pg MCHC 34.8 (32-36) g/dL RDW Std Deviation 43.0 (36.4-46.3) fL RDW Coeff of Ilana 12.8 (11.5-14.5) % Plt Count 409 H (130-400) K/uL MPV 8.6 (7.4-10.4) fL Immature Gran % (Auto) 0.3 % Neut % (Auto) 76.4 % Lymph % (Auto) 9.6 % [place] % (Auto) 13.6 % Eos % (Auto) 0.0 % Baso % (Auto) 0.1 % Neut # (Auto) 10.54 H (1.4-6.5) K/uL Lymph # (Auto) 1.33 (1.2-3.4) K/uL [place] # (Auto) 1.88 H (0.11-0.59) K/uL Eos # (Auto) 0.00 (0-0.5) K/uL Baso # (Auto) 0.01 (0-0.2) K/uL Immature Gran # (Auto) 0.04 H (0.00-0.02) K/uL PT (9.0-12.0) Seconds INR (0.9-1.1) APTT (21.0-31.0) Seconds PTT Ratio Sodium 133 L (136-145) mmol/L Potassium 3.7 (3.5-5.1) mmol/L Chloride 101 (98-107) mmol/L Carbon Dioxide 25 (21-32) mmol/L Anion Gap 7.0 (3-11) BUN 6 L (7-18) mg/dl Creatinine 0.68 (0.6-1.4) mg/dl Est Cr Clr Drug Dosing 93.0 ml/min Est GFR ( Amer) 115.3 ml/min Est GFR (Non-Af Amer) 99.5 ml/min BUN/Creatinine Ratio 8.2 L (10-20) Glucose 131 H (70-99) mg/dl Lactate (0.4-2.0) mmol/L Calcium 9.4 (8.5-10.1) mg/dl Magnesium 2.3 (1.8-2.4) mg/dl Total Bilirubin 1.0 (0.2-1) mg/dl AST 32 (15-37) U/L ALT 71 (12-78) U/L Alkaline Phosphatase 67 (45-117) U/L Troponin I < 0.015 (0-0.045) ng/ml Total Protein 8.9 H (6.4-8.2) gm/dl Albumin 3.2 L (3.4-5.0) gm/dl Globulin 5.7 H (2.5-4.0) gm/dl Albumin/Globulin Ratio 0.6 L (0.9-2) Procalcitonin < 0.05 (0-0.5) ng/ml Urine Color Urine Appearance (Clear) Urine pH (4.5-7.5) Ur Specific [place] (1.000-1.030) Urine Protein (Negative) Urine Glucose (UA) (Negative) Urine Ketones (Negative) Urine Blood (Negative) Urine Nitrite (Negative) Urine Bilirubin (Negative) Urine Urobilinogen (Negative) Ur Leukocyte Esterase (Negative) Adenovirus (PCR) (NotDetected) B. pertussis DNA (PCR) (NotDetected) B.parapertussis DNA PCR (NotDetected) C. pneumoniae DNA (PCR) (NotDetected) Coronavirus OC43 (PCR) (NotDetected) Coronavirus HKU1 (PCR) (NotDetected) Coronavirus 229E (PCR) (NotDetected) SARS-CoV-2 (PCR) (Negative) Coronavirus NL63 (PCR) (NotDetected) Human Metapneumovir PCR (NotDetected) Influenza Type A (PCR) (NotDetected) Influ A Molecular Assay (Negative) Influenza Type B (PCR) (NotDetected) Influ B Molecular Assay (Negative) M. pneumoniae (PCR) (NotDetected) Parainfluenza 1 (PCR) (NotDetected) Parainfluenza 2 (PCR) (NotDetected) Parainfluenza 3 (PCR) (NotDetected) Parainfluenza 4 (PCR) (NotDetected) RSV (PCR) (NotDetected) Entero/Rhino (PCR) (NotDetected) 06/01/21 06/01/21 06/01/21 Range/Units 00:45 00:45 00:45 WBC (4.8-10.8) K/uL RBC (4.7-6.1) M/uL Hgb (14.0-18.0) g/dL Hct (42-52) % MCV (80-100) fL MCH (25-34) pg MCHC (32-36) g/dL RDW Std Deviation (36.4-46.3) fL RDW Coeff of Ilana (11.5-14.5) % Plt Count (130-400) K/uL MPV (7.4-10.4) fL Immature Gran % (Auto) % Neut % (Auto) % Lymph % (Auto) % [place] % (Auto) % Eos % (Auto) % Baso % (Auto) % Neut # (Auto) (1.4-6.5) K/uL Lymph # (Auto) (1.2-3.4) K/uL [place] # (Auto) (0.11-0.59) K/uL Eos # (Auto) (0-0.5) K/uL Baso # (Auto) (0-0.2) K/uL Immature Gran # (Auto) (0.00-0.02) K/uL PT 11.4 (9.0-12.0) Seconds INR 1.1 (0.9-1.1) APTT 28.0 (21.0-31.0) Seconds PTT Ratio 1.1 Sodium (136-145) mmol/L Potassium (3.5-5.1) mmol/L Chloride (98-107) mmol/L Carbon Dioxide (21-32) mmol/L Anion Gap (3-11) BUN (7-18) mg/dl Creatinine (0.6-1.4) mg/dl Est Cr Clr Drug Dosing ml/min Est GFR ( Amer) ml/min Est GFR (Non-Af Amer) ml/min BUN/Creatinine Ratio (10-20) Glucose (70-99) mg/dl Lactate 1.1 (0.4-2.0) mmol/L Calcium (8.5-10.1) mg/dl Magnesium (1.8-2.4) mg/dl Total Bilirubin (0.2-1) mg/dl AST (15-37) U/L ALT (12-78) U/L Alkaline Phosphatase (45-117) U/L Troponin I (0-0.045) ng/ml Total Protein (6.4-8.2) gm/dl Albumin (3.4-5.0) gm/dl Globulin (2.5-4.0) gm/dl Albumin/Globulin Ratio (0.9-2) Procalcitonin (0-0.5) ng/ml Urine Color Urine Appearance (Clear) Urine pH (4.5-7.5) Ur Specific [place] (1.000-1.030) Urine Protein (Negative) Urine Glucose (UA) (Negative) Urine Ketones (Negative) Urine Blood (Negative) Urine Nitrite (Negative) Urine Bilirubin (Negative) Urine Urobilinogen (Negative) Ur Leukocyte Esterase (Negative) Adenovirus (PCR) (NotDetected) B. pertussis DNA (PCR) (NotDetected) B.parapertussis DNA PCR (NotDetected) C. pneumoniae DNA (PCR) (NotDetected) Coronavirus OC43 (PCR) (NotDetected) Coronavirus HKU1 (PCR) (NotDetected) Coronavirus 229E (PCR) (NotDetected) SARS-CoV-2 (PCR) NEGATIVE (Negative) Coronavirus NL63 (PCR) (NotDetected) Human Metapneumovir PCR (NotDetected) Influenza Type A (PCR) (NotDetected) Influ A Molecular Assay (Negative) Influenza Type B (PCR) (NotDetected) Influ B Molecular Assay (Negative) M. pneumoniae (PCR) (NotDetected) Parainfluenza 1 (PCR) (NotDetected) Parainfluenza 2 (PCR) (NotDetected) Parainfluenza 3 (PCR) (NotDetected) Parainfluenza 4 (PCR) (NotDetected) RSV (PCR) (NotDetected) Entero/Rhino (PCR) (NotDetected) 06/01/21 06/01/21 06/01/21 Range/Units 00:45 00:45 00:45 WBC (4.8-10.8) K/uL RBC (4.7-6.1) M/uL Hgb (14.0-18.0) g/dL Hct (42-52) % MCV (80-100) fL MCH (25-34) pg MCHC (32-36) g/dL RDW Std Deviation (36.4-46.3) fL RDW Coeff of Ilana (11.5-14.5) % Plt Count (130-400) K/uL MPV (7.4-10.4) fL Immature Gran % (Auto) % Neut % (Auto) % Lymph % (Auto) % [place] % (Auto) % Eos % (Auto) % Baso % (Auto) % Neut # (Auto) (1.4-6.5) K/uL Lymph # (Auto) (1.2-3.4) K/uL [place] # (Auto) (0.11-0.59) K/uL Eos # (Auto) (0-0.5) K/uL Baso # (Auto) (0-0.2) K/uL Immature Gran # (Auto) (0.00-0.02) K/uL PT (9.0-12.0) Seconds INR (0.9-1.1) APTT (21.0-31.0) Seconds PTT Ratio Sodium (136-145) mmol/L Potassium (3.5-5.1) mmol/L Chloride (98-107) mmol/L Carbon Dioxide (21-32) mmol/L Anion Gap (3-11) BUN (7-18) mg/dl Creatinine (0.6-1.4) mg/dl Est Cr Clr Drug Dosing ml/min Est GFR ( Amer) ml/min Est GFR (Non-Af Amer) ml/min BUN/Creatinine Ratio (10-20) Glucose (70-99) mg/dl Lactate (0.4-2.0) mmol/L Calcium (8.5-10.1) mg/dl Magnesium (1.8-2.4) mg/dl Total Bilirubin (0.2-1) mg/dl AST (15-37) U/L ALT (12-78) U/L Alkaline Phosphatase (45-117) U/L Troponin I (0-0.045) ng/ml Total Protein (6.4-8.2) gm/dl Albumin (3.4-5.0) gm/dl Globulin (2.5-4.0) gm/dl Albumin/Globulin Ratio (0.9-2) Procalcitonin (0-0.5) ng/ml Urine Color Yellow Urine Appearance Clear (Clear) Urine pH 7.0 (4.5-7.5) Ur Specific [place] 1.038 H (1.000-1.030) Urine Protein Negative (Negative) Urine Glucose (UA) Negative (Negative) Urine Ketones 1+ H (Negative) Urine Blood Negative (Negative) Urine Nitrite Negative (Negative) Urine Bilirubin Negative (Negative) Urine Urobilinogen Negative (Negative) Ur Leukocyte Esterase Negative (Negative) Adenovirus (PCR) Not Detected (NotDetected) B. pertussis DNA (PCR) Not Detected (NotDetected) B.parapertussis DNA PCR Not Detected (NotDetected) C. pneumoniae DNA (PCR) Not Detected (NotDetected) Coronavirus OC43 (PCR) Not Detected (NotDetected) Coronavirus HKU1 (PCR) Not Detected (NotDetected) Coronavirus 229E (PCR) Not Detected (NotDetected) SARS-CoV-2 (PCR) Not Detected (Negative) Coronavirus NL63 (PCR) Not Detected (NotDetected) Human Metapneumovir PCR Not Detected (NotDetected) Influenza Type A (PCR) Not Detected (NotDetected) Influ A Molecular Assay Negative (Negative) Influenza Type B (PCR) Not Detected (NotDetected) Influ B Molecular Assay Negative (Negative) M. pneumoniae (PCR) Not Detected (NotDetected) Parainfluenza 1 (PCR) Not Detected (NotDetected) Parainfluenza 2 (PCR) Not Detected (NotDetected) Parainfluenza 3 (PCR) Not Detected (NotDetected) Parainfluenza 4 (PCR) Not Detected (NotDetected) RSV (PCR) Not Detected (NotDetected) Entero/Rhino (PCR) Not Detected (NotDetected) Imaging Data Attestation: I personally reviewed and interpreted this imaging study as follows: MDM Narrative Prior records/ancillary studies reviewed. Triage Nursing notes reviewed. Additional history obtained from nursing. The patient's history was concerning for cold symptoms Differential diagnosis: Etiologies such as viral syndrome, pharyngitis, Covid, sepsis, bacteremia, bronchitis, allergies, otitis, pneumonia, influenza, as well as others were entertained. ER treatment provided: IV fluids, nebulizer, heparin, Zosyn On reassessment the patient felt better. Diagnostics interpreted by me: EKG: Ordered for weakness EKG: Normal sinus, T wave inversions in inferior leads, no ST depression in the lateral leads, rate of 95. Impression normal sinus rhythm with ST depression in T wave inversions interpreted by myself I think arrhythmia is unlikely. EKG shows normal sinus rhythm with no interval abnormalities such as QT prolongation or WPW. There are no findings to suggest Brugada syndrome. Cardiac monitoring in the emergency department reveals no tachycardic or bradycardic dysrhythmia. Hypertrophic cardiomyopathy was considered but there are no clear historical elements pointing toward this. EKG is not suggestive. The QRS voltage is not extremely large and there are no suggestive Q waves. The labs revealed leukocytosis Pending blood cultures Mild hyperglycemia without DKA Initial Covid test was negative, after reviewing the CAT scan the bio fire was ordered as there was concern for atypical infection Negative lactic. Negative procalcitonin Imaging studies: CTA CHEST: Pulmonary emboli of the segmental branches of the right lower and middle lobes. Patchy bilateral airspace opacities are most consistent with atypical infection. Superimposed infarcts of the right middle and lower lobes cannot be excluded. Heart size is within normal limits. No pathologically enlarged lymph nodes. The esophagus is fluid-filled. No fracture. Radiologist: Andreina Cannon MD Study ready at 01:49 and initial results transmitted at 02:10 Communications: Clear Time Type Notes Call Doctor Pulmonary Embolism Consultation: A consultation was placed with [facility] hospitalist. Case was discussed and will be admitted. They are recommending heparin. PESI Score Age: 65 Male gender: 10 History of cancer: 0 Heart failure: 0 Chronic lung disease: 0 Pulse =110/min: 20 Systolic blood pressure <100 mmH Respiratory rate =30/min: 20 Temperature <36 Celcius: 0 Altered mental status: 0 Arterial oxygen saturation <90 percent: 0 Total: 116 Class I Low risk <66 Class II 66 to 85 Class III High risk 86 to 105 Class IV 106 to 125 Class V >125 CURB Score: Confusion: 0 Urea (BUN > 19): 0 Respiratory Rate (>30/min): 1 Blood Pressure: Diastolic <60 or Systolic <90 0 Age (>= 65) 1 Total (0-1 low risk, 2-5 high risk): 2 This appears to be consistent with PEs with atypical infection of the lung Initial rapid Covid was negative. Bio fire was ordered. He was admitted to the medical service. Case was discussed with the admitting team and does recommend heparin with bolus. By the evaluation outlined above emergent etiologies such as otitis, meningitis, urinary tract infection, sepsis, bacteremia, as well as others were deemed relatively unlikely. The pt informed about the findings as listed above. All questions were answered and pleased with the treatment. The chart was completed utilizing [employer] Speech voice recognition software. Grammatical errors, random word insertions, pronoun errors, and incomplete sentences are an occassional consequence of this system due to software limitations, ambient noise, and hardware issues. Any formal questions or concerns about the content, text, or information contained within the body of this dictation should be directly addressed to the physician family services assistant for clarification. Impression & Plan Pulmonary embolism Discharge Plan Visit Data Chief Complaint: Cough Stated Complaint: [id number] APPETITE ED Provider: Do Emanuel ED Midlevel Provider: Bernarda Clinton Discharge Problem: Pulmonary embolism Patient Disposition: Admitted As Inpatient Condition: Good Forms Stand Alone Forms: [employer] Prescriptions Prescriptions: No Action naproxen sodium [Aleve] 220 mg Tablet 220 - 440 mg PO DAILY PRN (Reason: Pain) RF: 0 rosuvastatin 10 mg tablet 10 mg PO DAILY RF: 0 amoxicillin 500 mg tablet 2,000 mg PO UD RF: 0 Referrals Referrals: PCP,NO [Physician] - Discharge Problem: Pulmonary embolism Qualifiers: Pulmonary embolism type: unspecified Chronicity: acute Acute cor pulmonale pr esence: unspecified Qualified Code(s): I26.99 - Other pulmonary embolism without acute cor pulmonale
[2021-06-01 01:00] LABS: Basophils # (auto) 0.01 K/uL (0-0.2); Basophils % (auto) 0.1 %; Hematocrit (blood only) 41.4 % (42-52); Hemoglobin 14.4 g/dL (14.0-18.0); Immature Granulocytes # (auto) 0.04 K/uL (0.00-0.02); Immature Granulocytes % (auto) 0.3 %; Lymphocytes # (auto) 1.33 K/uL (1.2-3.4); Lymphocytes % (auto) 9.6 %; Mean Corpuscular Hemoglobin 31.6 pg (25-34); Mean Corpuscular Hgb Conc 34.8 g/dL (32-36); Mean Corpuscular Volume 90.8 fL (80-100); Mean Platelet Volume 8.6 fL (7.4-10.4); Monocytes # (auto) 1.88 K/uL (0.11-0.59); Monocytes % (auto) 13.6 %; Neutrophils # (auto) 10.54 K/uL (1.4-6.5); Neutrophils % (auto) 76.4 %; Platelet Count 409 K/uL (130-400); RDW Coefficient of Variation 12.8 % (11.5-14.5); Red Blood Count 4.56 M/uL (4.7-6.1)
[2021-06-01 01:09] LABS: INR 1.1 (0.9-1.1); Partial Thromboplastin Ratio 1.1; Prothrombin Time 11.4 Seconds (9.0-12.0)
[2021-06-01 01:15] LABS: Alanine Aminotransferase 71 U/L (12-78); Albumin Level 3.2 gm/dl (3.4-5.0); Aspartate Aminotransferase 32 U/L (15-37); BUN Creatinine Ratio 8.2 (10-20); Blood Urea Nitrogen 6 mg/dl (7-18); Calcium 9.4 mg/dl (8.5-10.1); Carbon Dioxide 25 mmol/L (21-32); Chloride 101 mmol/L (98-107); Est GFR (African American) 115.3 ml/min; Est GFR (Non-African American) 99.5 ml/min; Glucose 131 mg/dl (70-99); Magnesium 2.3 mg/dl (1.8-2.4); Potassium 3.7 mmol/L (3.5-5.1); Sodium 133 mmol/L (136-145)
[2021-06-01 01:19] LABS: Albumin Globulin Ratio 0.6 (0.9-2); Alkaline Phosphatase 67 U/L (45-117); Globulin 5.7 gm/dl (2.5-4.0); Total Protein 8.9 gm/dl (6.4-8.2); Troponin I < 0.015 ng/ml (0-0.045)
[2021-06-01 01:31] LABS: Influenza A virus by PCR Negative (Negative); Influenza B virus by PCR Negative (Negative)
[2021-06-01] MEDS ORDERED: OPTIRAY 320 125ml IV ONE (01:42)
[2021-06-01 02:08] LABS: Appearance Urine Clear (Clear); Bilirubin Urine Negative (Negative); Blood Urine Negative (Negative); Color Urine Yellow; Glucose Urine UA Negative (Negative); Ketones Urine 1+ (Negative); Leukocyte Esterase Urine Negative (Negative); Nitrite Urine Negative (Negative); Protein Urine Negative (Negative); Specific Gravity Urine 1.038 (1.000-1.030); Urobilinogen Urine Negative (Negative)
[2021-06-01] MEDS ORDERED: Heparin IV Adult Wt-Based Standard WITH Bolus Protocol IV STA (02:29)
[2021-06-01] MEDS ORDERED: ALBUT/IPRATROP 3MG/0.5MG NEB 3 ML VIAL NEB STA (02:29)
[2021-06-01] MEDS ORDERED: HEPARIN SOD (PORCINE) 1000 UNIT/ML IV ONE (02:45)
[2021-06-01 03:54] LABS: Adenovirus PCR Not Detected (NotDetected); Bordetella parapertussis PCR Not Detected (NotDetected); Bordetella pertussis PCR Not Detected (NotDetected); Chlamydia pneumoniae PCR Not Detected (NotDetected); Coronavirus 229E PCR Not Detected (NotDetected); Coronavirus CoV-2 (COVID19)PCR Not Detected (NotDetected); Coronavirus HKU1 PCR Not Detected (NotDetected); Coronavirus NL63 PCR Not Detected (NotDetected); Coronavirus OC43PCR Not Detected (NotDetected); Human Metapneumovirus PCR Not Detected (NotDetected); Influenza A PCR Not Detected (NotDetected); Influenza B PCR Not Detected (NotDetected); Mycoplasma pneumoniae PCR Not Detected (NotDetected); Parainfluenza Virus 1 PCR Not Detected (NotDetected); Parainfluenza Virus 2 PCR Not Detected (NotDetected); Parainfluenza Virus 3 PCR Not Detected (NotDetected); Parainfluenza Virus 4 PCR Not Detected (NotDetected); Respiratory Syncytial VirusPCR Not Detected (NotDetected); Rhinovirus/Enterovirus PCR Not Detected (NotDetected)
[2021-06-01] MEDS ORDERED: PIPERACILL/TAZOBAC CONSULT ACTIVE PRN (04:24)
[2021-06-01] MEDS ORDERED: PIPERACILLIN/TAZOBACTAM 4.5 GM/120 ML BAG IV ONE (04:24)
[2021-06-01] MEDS: HEPARIN SODIUM/DEXTROSE 25,000 UNITS/500 ML BAG IV SCH (04:29)
--- NOTE | 2021-06-01 06:09 | History and Physical Report ---
DATE OF ADMISSION: 06/01/2021. CHIEF COMPLAINT: Chest pain, shortness of breath. HISTORY OF PRESENT ILLNESS: A 65-year-old male with past medical history significant for hyperlipidemia, comes with shortness of breath and not feeling well and chest pain, found to have right lung PE. The patient says since 05/14/2021, he is not feeling well, he is feeling fatigued, poor appetite and initially, he had some fever, some dry cough. His appetite was improving recently, but again yesterday, he felt chest pain on movement and short of breath and feeling weak and tired and was brought to the ER. Imaging studies showed right lung PE. His COVID PCR and BioFire came back negative. The patient is not vaccinated. Currently, saturating okay on room air. Denies any headache. No blurred visions, no earache, no runny nose, no sore throat. Appetite is okay. No difficulty swallowing. No nausea, no abdominal pain, normal bowel and bladder movements. No swelling in the legs, no rash. He also goes for hunting and I requested to check for Lyme screen. No previous history of blood clots. ALLERGIES: No known drug allergies. PAST MEDICAL HISTORY: As mentioned above. PAST SURGICAL HISTORY: Bilateral knee surgeries. MEDICATIONS: The patient on Crestor 10 mg p.o. daily. FAMILY HISTORY: No significant family history as per patient. SOCIAL HISTORY: No smoking. Alcohol, occasional. REVIEW OF SYSTEMS: As per HPI. Rest of the review of systems is negative. PHYSICAL EXAMINATION: GENERAL: The patient is of moderate build, not in acute distress. VITAL SIGNS: Temperature 36.5, pulse 96, respiratory rate 22, blood pressure 157/95, oxygen 93% on room air. HEENT: Pupils equal, round and reactive to light. Oral mucosa moist. NECK: No JVD, no neck masses. CARDIOVASCULAR: S1 and S2 heard. Regular rate and rhythm. No murmur, no gallop. RESPIRATORY SYSTEM: Normal AP diameter. No accessory muscle use. No wheezing, no crackles. ABDOMEN: Soft, bowel sounds present, nontender, no distention. CENTRAL NERVOUS SYSTEM: Cranial nerves II-XII grossly intact, nonfocal. EXTREMITIES: No edema, no erythema. LABORATORY DATA: WBC 7.8, hemoglobin 14.4, hematocrit 41.4, platelets 409. PT 12.4, INR 1.1, APTT 28. Sodium 133, potassium 3.7, chloride 101, bicarbonate 25, BUN 6, creatinine 0.6, serum glucose 131. Lactate 1.1, calcium 9.4, magnesium 2.3, total bilirubin 1, AST 32, ALT 71, alkaline phosphatase 67. Troponin I less than 0.015. Procalcitonin 0.05. Urinalysis negative. BioFire negative. COVID PCR negative. IMAGING DATA: CT of the chest, preliminary report showing pulmonary emboli of the segmental branch of the right lower and middle lobes, patchy bilateral airspace opacities are most consistent with atypical pneumonia. Superimposed infarcts of the right middle and lower lobes cannot be excluded. No pathologically enlarged lymph nodes. EKG: Normal sinus rhythm at a rate of 95, possible left atrial enlargement, ST- T wave abnormalities in inferior leads. ASSESSMENT AND PLAN: This is a 65-year-old male who presents with not feeling well, shortness of breath and chest pain on movement, found to have acute pulmonary embolism. 1. Acute pulmonary embolism in the right lower and middle lobes, unprovoked. Having chest pains. Etiology is clear. Started on IV heparin in the ER, which will be continued. Follow echo, lower extremity Doppler, troponin. Needs to follow up with primary care physician and hematology for further workup. 2. Questionable atypical pneumonia on the CAT scan. Needs to follow the final report of the CAT scan.er started on zosyn., we will also add doxycycline, follow the response.Covid pcr and biofire negative and also no lymphopenia. 3. Hyperlipidemia: Continue statin. 4. Deep venous thrombosis prophylaxis: Currently on IV heparin. Job ID: [id number] [facility]
[2021-06-01] MEDS ORDERED: NITROGLYCERIN SL 0.4 MG/TAB TAB SL PRN (06:21)
[2021-06-01] MEDS ORDERED: SODIUM CHLORIDE 0.9% 1000ML 1,000 ML IV SCH (06:21)
[2021-06-01] MEDS ORDERED: oxyCODONE HCL IR 5 MG TAB (IMMEDIATE RELEASE) PO PRN (06:21)
[2021-06-01] MEDS ORDERED: ACETAMINOPHEN 325 MG TAB PO PRN (06:21)
--- NOTE | 2021-06-01 07:33 | Ultrasound Report ---
BILATERAL LOWER EXTREMITY VENOUS DOPPLER HISTORY: Patient presents with pulmonary embolus. Screening for DVT. acute PE. DVT? COMPARISON STUDY: None. FINDINGS: There is normal compressibility, flow, and augmentation within the right lower extremity de ep venous structures. One of the duplicated superficial femoral veins on the left demonstrates partia lly occlusive thrombus within the midportion of the vessel. Partially occlusive thrombus of the popli teal vein and one of the duplicated posterior tibial veins. IMPRESSION: 1. Partially occlusive deep venous thrombi of the left lower extremity 2. No right lower extremity DVT. ACT 112: Negative or not required by law. Electronically signed by: Martin Taylor M.D. 06/01/2021 7:32 AM
--- NOTE | 2021-06-01 07:44 | Electrocardiogram Report ---
Test Reason : Blood Pressure : / mmHG Vent. Rate : 095 BPM Atrial Rate : 095 BPM P-R Int : 138 ms QRS Dur : 090 ms QT Int : 350 ms P-R-T Axes : 028 018 -29 degrees QTc Int : 439 ms Normal sinus rhythm Possible Left atrial enlargement Nonspecific ST abnormality Abnormal ECG When compared with ECG of 02-OCT-2018 10:59, Vent. rate has increased BY 32 BPM Confirmed by Ghassan Blackwell ([id number]) on 06/01/2021 7:44:01 AM Referred By: REFERRED SELF Confirmed By:Brian Blackwell
--- NOTE | 2021-06-01 08:11 | CT Scan Report ---
CT angio chest PE protocol CT DOSE: 325.25 mGy.cm HISTORY: 65 years-old Male with PE. Acute shortness of breath with sepsis TECHNIQUE: Multiple CTA images of the chest were obtained after the intravenous administration of 118 ml Optiray. Coronal and sagittal MIPS were obtained from the axial data set and were submitted for review. All measurements were obtained according to NASCET criteria. A dose lowering technique was u tilized adhering to the principles of ALARA. COMPARISON: Chest radiograph and Duplex venous Doppler study of same day FINDINGS: CTA: The heart is upper limits of normal in size. No pericardial effusion. No thoracic aortic aneurysm or dissection. Patency of the imaged great vessels. Satisfactory opacification of the pulmonary artery. There are lobar, segmental and subsegmental pulmonary emboli present within the right lower and middl e lobes the segmental and subsegmental pulmonary emboli of the left lower lobe are suboptimally visua lized secondary to respiratory motion artifact. No evidence of right heart strain. CT CHEST: No thyroid nodule. No pathologically enlarged lymph nodes. Trace right pleural effusion. No pneumotho rax. Patchy subpleural predominant bilateral groundglass and consolidative opacities. Dependent conso lidation within the lower lobes. 3 mm subpleural solid nodule within the lateral segment right middle lobe, low clinical suspicion. The central airways are patent. Mild gaseous distention of the mid thoracic esophagus. Small hiatal hernia. Unremarkable soft tissues . No acute fracture. IMPRESSION: 1. Lobar, segmental and subsegmental pulmonary emboli of the right middle and lower lobes. No evidenc e of right heart strain. 2. Bilateral subpleural predominant groundglass and consolidative opacities are compatible with viral pneumonia. 3. Trace right pleural effusion. 4. Small hiatal hernia. ACT 112: Negative or not required by law. The above report was generated using voice recognition software. It may contain grammatical, syntax o r spelling errors. Electronically signed by: Martin Taylor M.D. 06/01/2021 8:10 AM
--- NOTE | 2021-06-01 09:03 | XRay Report ---
XR chest 1V portable HISTORY: SEPSIS COMPARISON: Chest 10/02/2018. FINDINGS: No pneumothorax. There are patchy peripheral airspace opacities within the mid to lower [place] zones. The heart is mildly enlarged. Trace bilateral pleural effusions. IMPRESSION: Small patchy airspace opacities within the mid to lower lung zones likely representing a viral pneumo matthew. ACT 112: Negative or not required by law. Electronically signed by: Ricardo Patiño M.D. 06/01/2021 9:02 AM
[2021-06-01] MEDS: ROSUVASTATIN CALCIUM 10 MG TAB PO SCH (09:35)
[2021-06-01 11:03] LABS: Lyme Ab IgG w/WB Rflx Negative (Negative); Lyme Ab IgM w/WB Rflx Negative (Negative)
[2021-06-01] MEDS: DOXYCYCLINE HYCLATE 100 MG CAP PO SCH ×2 (11:52→22:04)
[2021-06-01] MEDS: PIPERACILLIN/TAZOBACTAM 3.375 GM in DEXTROSE 5% 100 ML IV SCH ×2 (12:13→18:18)
--- NOTE | 2021-06-01 12:22 | Hospitalist Progress Note ---
Date of Service June 01, 2021 Assessment & Plan (1) Pulmonary embolism: Plan: Acute DVT/PE likely provoked from recent 2-3 week illness. 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 Rides long distances on a regular basis up until this year, but still rides 10 miles regularly. Possible pneumonia on imaging. Will continue current heparin infusion and likely transition to apixaban pending insurance coverage. Denies lower extremity symptoms but TEDs would be recommended to avoid post-thrombotic syndrome. Two step would be required prior to discharge. (2) Pneumonia: Plan: Currently on Zosyn/doxy and will de-escalate likely tomorrow pending clinical response and culture results. Fever is currently controlled, which may have also been from DVT/PE. No breana respiratory symptoms, however, I'm concerned this was the reason for his recent malaise. Also, has peripheral pneumonia so would cont with atypical antibiotic coverage. He is a confirmed nonsmoker. (3) Hyperlipidemia: Plan: Cont crestor per home regimen. (4) DVT prophylaxis: Plan: heparin infusion Full Code Dispo-PCU. Patient reports is up to date with the plan. Zo Aparicio DO [facility] Hospitalist Admission and Anticipated Discharge Date Admission Date: June 01, 2021 Subjective 65 yo M with hyperlipidemia reports 2-3 weeks of generalized malaise, fevers with uncertain temperature, and some increased sedentary behaviors because of this malaise. No cough, chills, no urinary symptoms, no changes in BMs. He is a nonsmoker. He reports these periods of malaise and generalized illness have been ongoing now for a few months and would last a couple of days then go away. However, this last bout of illness lasted for approximately 2 weeks. Currently not requiring oxygen supplementation Denies SOB with rest Denies chest pain Difficulties with CP and dyspnea with exertion No GI symptoms, F, C, n/v, change in bowels. Back pain that was located in right scapula has resolved Denies any bleeding issues recently. Lack of appetite. Review of Systems Review of Systems: All systems were reviewed and negative except as indicated on subjective above. Physical Exam Physical Exam: CONSTITUTIONAL: WNWD, vitals as above, generally well- appearing, NAD, not requiring oxygen supplementation. EYES:normal conjunctivae ENT: external ear and nose normal NECK: trachea midline, MMM RESPIRATORY: clear to auscultation bilaterally, diminished breath sounds throughout. No crackles, rales or wheezes, normal respiratory effort CARDIOVASCULAR: regular rate and rhythm, S1 and 2 heard without murmurs, gallops or rubs, no JVD, no peripheral edema GASTROINTESTINAL: soft, nontender ND, no guarding MUSCULOSKELETAL: strength 5/5 throughout, head is normocephalic and atraumatic SKIN: warm and dry NEUROLOGIC: CN 2-12 grossly intact, no sensory deficit, normal cognition, normal speech, no tremor. No gross focal deficits. PSYCHIATRIC: alert cooperative and oriented to person, place and time. Euthymic mood, makes good eye contact, language grossly intact, recent and remote memory grossly intact. Results & Data Results & Data ([facility]) Vital Signs (Past 12 Hours) Vital Signs Temp Pulse Pulse Resp BP BP Pulse Ox 06/01/21 06:37 37.0 C 80 22 162/103 H 92 06/01/21 06:10 75 32 H 92 06/01/21 06:00 75 30 H 138/84 92 06/01/21 05:51 76 20 146/87 H 91 06/01/21 05:50 78 34 H 92 06/01/21 05:40 78 30 H 92 06/01/21 05:30 79 34 H 146/87 H 93 06/01/21 05:20 81 40 H 94 06/01/21 05:10 83 36 H 93 06/01/21 05:00 84 44 H 135/74 94 06/01/21 04:50 85 43 H 93 06/01/21 04:40 90 46 H 93 06/01/21 04:30 89 57 H 149/95 H 94 06/01/21 04:20 90 24 93 06/01/21 04:10 94 H 46 H 93 06/01/21 04:00 93 H 44 H 143/89 H 93 06/01/21 03:50 92 H 49 H 92 06/01/21 03:40 94 H 51 H 92 06/01/21 03:30 97 H 44 H 155/101 H 93 06/01/21 03:20 93 06/01/21 03:10 93 06/01/21 03:00 97 H 152/92 H 93 06/01/21 02:50 94 06/01/21 02:45 96 H 22 93 06/01/21 02:40 93 06/01/21 02:30 97 H 154/95 H 93 06/01/21 02:27 94 06/01/21 02:20 94 H 45 H 93 06/01/21 02:17 20 94 06/01/21 02:10 94 H 46 H 93 06/01/21 02:00 94 H 157/95 H 93 06/01/21 01:50 94 06/01/21 01:48 94 H 20 94 06/01/21 01:46 94 H 20 179/98 H 94 06/01/21 01:45 91 06/01/21 01:20 88 93 06/01/21 01:10 92 06/01/21 01:02 92 H 92 Pulse Ox 06/01/21 06:37 92 06/01/21 06:10 06/01/21 06:00 06/01/21 05:51 06/01/21 05:50 06/01/21 05:40 06/01/21 05:30 06/01/21 05:20 06/01/21 05:10 06/01/21 05:00 06/01/21 04:50 06/01/21 04:40 06/01/21 04:30 06/01/21 04:20 06/01/21 04:10 06/01/21 04:00 06/01/21 03:50 06/01/21 03:40 06/01/21 03:30 06/01/21 03:20 06/01/21 03:10 06/01/21 03:00 06/01/21 02:50 06/01/21 02:45 06/01/21 02:40 06/01/21 02:30 06/01/21 02:27 06/01/21 02:20 06/01/21 02:17 06/01/21 02:10 06/01/21 02:00 06/01/21 01:50 06/01/21 01:48 06/01/21 01:46 06/01/21 01:45 06/01/21 01:20 06/01/21 01:10 06/01/21 01:02 Laboratory Results Short CBC 06/01/21 Range/Units 00:45 WBC 13.80 H (4.8-10.8) K/uL Hgb 14.4 (14.0-18.0) g/dL Hct 41.4 L (42-52) % Plt Count 409 H (130-400) K/uL BMP 06/01/21 00:45 Sodium 133 L Potassium 3.7 Chloride 101 Carbon Dioxide 25 BUN 6 L Creatinine 0.68 Glucose 131 H Calcium 9.4 Cardiac Enzymes 06/01/21 Range/Units 00:45 Troponin I < 0.015 (0-0.045) ng/ml Liver Function 06/01/21 Range/Units 00:45 Total Bilirubin 1.0 (0.2-1) mg/dl AST 32 (15-37) U/L ALT 71 (12-78) U/L Alkaline Phosphatase 67 (45-117) U/L Albumin 3.2 L (3.4-5.0) gm/dl Urine 06/01/21 Range/Units 00:45 Urine Color Yellow Urine Appearance Clear (Clear) Urine pH 7.0 (4.5-7.5) Ur Specific [place] 1.038 H (1.000-1.030) Urine Protein Negative (Negative) Urine Glucose (UA) Negative (Negative) Diagnostic Findings Chest X-Ray 05/31/21 23:39 XR chest 1V portable HISTORY: SEPSIS COMPARISON: Chest 10/02/2018. FINDINGS: No pneumothorax. There are patchy peripheral airspace opacities within the mid to lower lung zones. The heart is mildly enlarged. Trace bilateral pleural effusions. IMPRESSION: Small patchy airspace opacities within the mid to lower lung zones likely representing a viral pneumonia. ACT 112: Negative or not required by law. Electronically signed by: Ricardo Patiño M.D. 06/01/2021 9:02 AM Chest CTA 06/01/21 01:04 CT angio chest PE protocol CT DOSE: 325.25 mGy.cm HISTORY: 65 years-old Male with PE. Acute shortness of breath with sepsis TECHNIQUE: Multiple CTA images of the chest were obtained after the intravenous administration of 118 ml Optiray. Coronal and sagittal MIPS were obtained from the axial data set and were submitted for review. All measurements were obtained according to NASCET criteria. A dose lowering technique was utilized adhering to the principles of ALARA. COMPARISON: Chest radiograph and Duplex venous Doppler study of same day FINDINGS: CTA: The heart is upper limits of normal in size. No pericardial effusion. No thor acic aortic aneurysm or dissection. Patency of the imaged great vessels. Satisfactory opacification of the pulmonary artery. There are lobar, segmental and subsegmental pulmonary emboli present within the right lower and middle lobes the segmental and subsegmental pulmonary emboli of the left lower lobe are suboptimally visualized secondary to respiratory motion artifact. No evidence of right heart strain. CT CHEST: No thyroid nodule. No pathologically enlarged lymph nodes. Trace right pleural effusion. No pneumothorax. Patchy subpleural predominant bilateral groundglass and consolidative opacities. Dependent consolidation within the lower lobes. 3 mm subpleural solid nodule within the lateral segment right middle lobe, low clinical suspicion. The central airways are patent. Mild gaseous distention of the mid thoracic esophagus. Small hiatal hernia. Unremarkable soft tissues. No acute fracture. IMPRESSION: 1. Lobar, segmental and subsegmental pulmonary emboli of the right middle and lower lobes. No evidence of right heart strain. 2. Bilateral subpleural predominant groundglass and consolidative opacities are compatible with viral pneumonia. 3. Trace right pleural effusion. 4. Small hiatal hernia. ACT 112: Negative or not required by law. The above report was generated using voice recognition software. It may contain grammatical, syntax or spelling errors. Electronically signed by: Martin Taylor M.D. 06/01/2021 8:10 AM Venous Doppler Study 06/01/21 06:21 BILATERAL LOWER EXTREMITY VENOUS DOPPLER HISTORY: Patient presents with pulmonary embolus. Screening for DVT. acute PE. DVT? COMPARISON STUDY: None. FINDINGS: There is normal compressibility, flow, and augmentation within the right lower extremity deep venous structures. One of the duplicated superficial femoral veins on the left demonstrates partially occlusive thrombus within the midportion of the vessel. Partially occlusive thrombus of the popliteal vein and one of the duplicated posterior tibial veins. IMPRESSION: 1. Partially occlusive deep venous thrombi of the left lower extremity 2. No right lower extremity DVT. ACT 112: Negative or not required by law. Electronically signed by: Martin Taylor M.D. 06/01/2021 7:32 AM Medications Administered Current Inpatient Medications Acetaminophen (Acetaminophen 325 Mg Tab) 650 mg PO Q4H PRN PRN Reason: Pain or Fever Stop: 07/01/21 06:20 Doxycycline Hyclate (Doxycycline Hyclate 100 Mg Cap) 100 mg PO BID@1000,2200 [facility] Stop: 06/08/21 09:59 Last Admin: 06/01/21 11:52 Dose: 100 mg Documented by: Heparin Sodium/Dextrose (Heparin Sodium/Dextrose) 25,000 units in 500 mls @ 24 mls/hr IV .[id number] [facility]; Protocol Stop: 07/01/21 02:44 Last Admin: 06/01/21 04:29 Dose: 1,200 units/hr, 24 mls/hr Documented by: Sodium Chloride (Nss 1000ml) 1,000 mls @ 100 mls/hr IV .Q10H [facility] Stop: 06/01/21 16:20 Last Admin: 06/01/21 06:46 Dose: 100 mls/hr Documented by: Piperacillin Sod/Tazobactam (Sod 3.375 gm/ Dextrose) 115 mls @ 28.75 mls/hr IV Q8H [facility]; Protocol Stop: 06/08/21 09:59 Miscellaneous Information (Piperacill/Tazobac Consult Active) 1 ea N/A UD PRN PRN Reason: Consult Stop: 07/01/21 04:23 Nitroglycerin (Nitroglycerin Sl 0.4 Mg/Tab Tab) 0.4 mg SL UD PRN PRN Reason: Chest Pain Stop: 07/01/21 06:20 Oxycodone HCl (Oxycodone Hcl Ir 5 Mg Tab (Immediate Release)) 5 mg PO Q4H PRN PRN Reason: Pain Stop: 06/15/21 06:20 Rosuvastatin Calcium (Rosuvastatin Calcium 10 Mg Tab) 10 mg PO DAILY [facility] Stop: 07/01/21 08:59 Last Admin: 06/01/21 09:35 Dose: 10 mg Documented by: (1) Pulmonary embolism Acute cor pulmonale presence: unspecified Chronicity: acute Pulmonary embolism type: unspecified Qualified Code(s): I26.99 - Other pulmonary embolism without acute cor pulmonale
[2021-06-01 12:39] LABS: Partial Thromboplastin Time 52.1 Seconds (21.0-31.0)
[2021-06-01] MEDS: WARFARIN SOD 5 MG TAB PO SCH (18:45)
[2021-06-02] MEDS: PIPERACILLIN/TAZOBACTAM 3.375 GM in DEXTROSE 5% 100 ML IV SCH ×2 (01:43→10:01)
[2021-06-02] MEDS: HEPARIN SODIUM/DEXTROSE 25,000 UNITS/500 ML BAG IV SCH ×2 (01:43→22:20)
[2021-06-02 06:11] LABS: Basophils # (auto) 0.03 K/uL (0-0.2); Basophils % (auto) 0.3 %; Eosinophils # (auto) 0.02 K/uL (0-0.5); Eosinophils % (auto) 0.2 %; Hematocrit (blood only) 38.3 % (42-52); Hemoglobin 13.3 g/dL (14.0-18.0); Immature Granulocytes # (auto) 0.03 K/uL (0.00-0.02); Immature Granulocytes % (auto) 0.3 %; Lymphocytes # (auto) 1.51 K/uL (1.2-3.4); Lymphocytes % (auto) 13.7 %; Mean Corpuscular Hemoglobin 31.7 pg (25-34); Mean Corpuscular Hgb Conc 34.7 g/dL (32-36); Mean Corpuscular Volume 91.4 fL (80-100); Mean Platelet Volume 8.7 fL (7.4-10.4); Monocytes # (auto) 1.75 K/uL (0.11-0.59); Monocytes % (auto) 15.9 %; Neutrophils # (auto) 7.69 K/uL (1.4-6.5); Neutrophils % (auto) 69.6 %; Platelet Count 350 K/uL (130-400); RDW Coefficient of Variation 13.3 % (11.5-14.5); RDW Standard Deviation 44.6 fL (36.4-46.3); Red Blood Count 4.19 M/uL (4.7-6.1); White Blood Count 11.03 K/uL (4.8-10.8)
[2021-06-02 06:38] LABS: BUN Creatinine Ratio 9.9 (10-20); Calcium 8.7 mg/dl (8.5-10.1); Creatinine Clr Calc Pharmacy 85.4 ml/min; Est GFR (African American) 111.4 ml/min; Est GFR (Non-African American) 96.1 ml/min; Magnesium 2.3 mg/dl (1.8-2.4); Partial Thromboplastin Ratio 1.8; Potassium 3.8 mmol/L (3.5-5.1)
[2021-06-02 06:49] LABS: Thyroid Stimulating Hormone 1.52 uIu/ml (0.300-4.500)
[2021-06-02 06:55] LABS: Partial Thromboplastin Time 46.6 Seconds (21.0-31.0)
[2021-06-02] MEDS: ROSUVASTATIN CALCIUM 10 MG TAB PO SCH (07:59)
[2021-06-02] MEDS: DOXYCYCLINE HYCLATE 100 MG CAP PO SCH ×2 (10:01→21:12)
--- NOTE | 2021-06-02 11:45 | Hospitalist Progress Note ---
Date of Service June 02, 2021 Assessment & Plan (1) Pulmonary embolism: Plan: Acute DVT/PE likely provoked from recent 2-3 week illness. 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 Rides long distances on a regular basis up until this year, but still rides 10 miles regularly. Currently on heparin drip on warfarin. Monitor INR. May need Lovenox to Coumadin bridging on discharge. We need to stop prior to discharge (2) Pneumonia: Plan: Possible pneumonia imaging. Currently on Zosyn/doxy. De-escalate to Augmentin and doxycycline (3) Hyperlipidemia: Plan: Cont crestor per home regimen. Admission and Anticipated Discharge Date Admission Date: June 01, 2021 Subjective 65-year-old man with history of hyperlipidemia who presented with shortness of breath chest pain. Being managed for right PE and pneumonia. Patient seen and examined this morning. Continues to report right-sided pleuritic chest pain. Denies any shortness of breath at this time. Denies cough. Denies any dizziness Denies nausea, vomiting, abdominal pain, diarrhea constipation Denies any fevers, chills Denies any dysuria, frequency, urgency Physical Exam Constitutional: + well hydrated; no acute distress Eyes: PERRL, conjunctivae normal, anicteric sclerae ENMT: external ear and nose normal, oropharynx normal Respiratory: Currently on room air. Not in respiratory distress. Diminished breath sounds lung bases Cardiovascular: Rate/Rhythm: regular rate and regular rhythm S1-S2 Gastrointestinal (Abdomen): normal bowel sounds, soft, nontender, no hepatosplenomegaly Musculoskeletal: no cyanosis or clubbing, extremities motor strength 5/5 Neurologic: PERRL, EOMI, accommodation nl, no face palsy, no dysarthria Psychiatric: A+Ox3, euthymic affect Results & Data Results & Data ([facility]) Vital Signs (Past 12 Hours) Vital Signs Temp Pulse Pulse Resp BP Pulse Ox 06/02/21 11:17 36.3 C L 63 18 134/84 93 06/02/21 07:59 36.8 C 68 18 144/74 H 92 06/02/21 07:05 67 06/02/21 03:40 37.3 C 76 20 137/81 92 06/02/21 00:43 74 Laboratory Results Abnormal lab results 06/01/21 06/02/21 06/02/21 Range/Units 11:45 05:38 05:38 WBC 11.03 H (4.8-10.8) K/uL RBC 4.19 L (4.7-6.1) M/uL Hgb 13.3 L (14.0-18.0) g/dL Hct 38.3 L (42-52) % Neut # (Auto) 7.69 H (1.4-6.5) K/uL [place] # (Auto) 1.75 H (0.11-0.59) K/uL Immature Gran # (Auto) 0.03 H (0.00-0.02) K/uL APTT 52.1 H* 46.6 H* (21.0-31.0) Seconds BUN/Creatinine Ratio (10-20) Glucose (70-99) mg/dl 06/02/21 Range/Units 05:38 WBC (4.8-10.8) K/uL RBC (4.7-6.1) M/uL Hgb (14.0-18.0) g/dL Hct (42-52) % Neut # (Auto) (1.4-6.5) K/uL [place] # (Auto) (0.11-0.59) K/uL Immature Gran # (Auto) (0.00-0.02) K/uL APTT (21.0-31.0) Seconds BUN/Creatinine Ratio 9.9 L (10-20) Glucose 117 H (70-99) mg/dl (1) Pulmonary embolism Acute cor pulmonale presence: unspecified Chronicity: acute Pulmonary embolism type: unspecified Qualified Code(s): I26.99 - Other pulmonary embolism without acute cor pulmonale
[2021-06-02] MEDS: WARFARIN SOD 5 MG TAB PO SCH (16:04)
[2021-06-02] MEDS: AMOXICILLIN/CLAVULANATE 875 MG TAB PO SCH (16:04)
[2021-06-03] MEDS: ROSUVASTATIN CALCIUM 10 MG TAB PO SCH (07:52)
[2021-06-03] MEDS: AMOXICILLIN/CLAVULANATE 875 MG TAB PO SCH (07:52)
[2021-06-03 09:50] LABS: INR 1.4 (0.9-1.1); Partial Thromboplastin Ratio 1.6; Partial Thromboplastin Time 42.7 Seconds (21.0-31.0); Prothrombin Time 13.8 Seconds (9.0-12.0)
[2021-06-03 09:54] LABS: BUN Creatinine Ratio 11.2 (10-20); Calcium 9.1 mg/dl (8.5-10.1); Est GFR (African American) 107.9 ml/min; Est GFR (Non-African American) 93.1 ml/min; Potassium 3.7 mmol/L (3.5-5.1)
[2021-06-03] MEDS ORDERED: ENOXAPARIN 80 MG/0.8 ML SYR SC SCH (10:00)
[2021-06-03] MEDS: DOXYCYCLINE HYCLATE 100 MG CAP PO SCH (10:28)
--- NOTE | 2021-06-03 12:43 | Hospitalist Progress Note ---
Date of Service June 03, 2021 Assessment & Plan Admission and Anticipated Discharge Date Admission Date: June 01, 2021 Results & Data Results & Data ([facility]) Vital Signs (Past 12 Hours) Vital Signs Temp Pulse Pulse Pulse Pulse Pulse Resp 06/03/21 11:28 36.8 C 70 18 06/03/21 09:18 84 83 71 06/03/21 08:00 72 06/03/21 07:40 36.9 C 73 18 Resp Resp Resp BP Pulse Ox Pulse Ox Pulse Ox 06/03/21 11:28 125/79 93 06/03/21 09:18 18 16 16 90 93 06/03/21 08:00 06/03/21 07:40 145/94 H 90 Pulse Ox 06/03/21 11:28 06/03/21 09:18 92 06/03/21 08:00 06/03/21 07:40
--- NOTE | 2021-06-03 19:46 | Discharge Summary ---
Date of Service June 03, 2021 Admission HPI Per Admitting Provider A 65-year-old male with past medical history significant for hyperlipidemia, comes with shortness of breath and not feeling well and chest pain, found to have right lung PE. The patient says since 05/14/2021, he is not feeling well, he is feeling fatigued, poor appetite and initially, he had some fever, some dry cough. His appetite was improving recently, but again yesterday, he felt chest pain on movement and short of breath and feeling weak and tired and was brought to the ER. Imaging studies showed right lung PE. His COVID PCR and [employer] came back negative. The patient is not vaccinated. Currently, saturating okay on room air. Denies any headache. No blurred visions, no earache, no runny nose, no sore throat. Appetite is okay. No difficulty swallowing. No nausea, no abdominal pain, normal bowel and bladder movements. No swelling in the legs, no rash. He also goes for hunting and I requested to check for Lyme screen. No previous history of blood clots. Admission Exam Per Admitting Provider GENERAL: The patient is of moderate build, not in acute distress. VITAL SIGNS: Temperature 36.5, pulse 96, respiratory rate 22, blood pressure 157/95, oxygen 93% on room air. HEENT: Pupils equal, round and reactive to light. Oral mucosa moist. NECK: No JVD, no neck masses. CARDIOVASCULAR: S1 and S2 heard. Regular rate and rhythm. No murmur, no gallop. RESPIRATORY SYSTEM: Normal AP diameter. No accessory muscle use. No wheezing, no crackles. ABDOMEN: Soft, bowel sounds present, nontender, no distention. CENTRAL NERVOUS SYSTEM: Cranial nerves II-XII grossly intact, nonfocal. EXTREMITIES: No edema, no erythema. Principal Diagnosis Acute pulmonary embolism Pneumonia Left lower leg DVT Discharge Exam Constitutional + well hydrated; no acute distress Eyes PERRL, conjunctivae normal, anicteric sclerae ENMT external ear and nose normal, oropharynx normal Respiratory normal respiratory effort; no respiratory distress Diminished breath sound lung base Cardiovascular Regular rate and rhythm. S1-S2 Gastrointestinal (Abdomen) normal bowel sounds, soft, nontender, no hepatosplenomegaly Musculoskeletal no cyanosis or clubbing, extremities motor strength 5/5 Psychiatric A+Ox3, euthymic affect Discharge Data Allergies Allergy/AdvReac Type Severity Reaction Status Date / Time No Known Allergies Allergy Verified 06/01/21 00:37 Consultations 06/01/21 03:12 ED Decision to Admit Stat Ordered Studies 06/01/21 01:04 CT angio chest PE protocol Urgent CTA: The heart is upper limits of normal in size. No pericardial effusion. No thoracic aortic aneurysm or dissection. Patency of the imaged great vessels. Satisfactory opacification of the pulmonary artery. There are lobar, segmental and subsegmental pulmonary emboli present within the right lower and middle lobes the segmental and subsegmental pulmonary emboli of the left lower lobe are suboptimally visualized secondary to respiratory motion artifact. No evidence of right heart strain. CT CHEST: No thyroid nodule. No pathologically enlarged lymph nodes. Trace right pleural effusion. No pneumothorax. Patchy subpleural predominant bilateral groundglass and consolidative opacities. Dependent consolidation within the lower lobes. 3 mm subpleural solid nodule within the lateral segment right middle lobe, low clinical suspicion. The central airways are patent. Mild gaseous distention of the mid thoracic esophagus. Small hiatal hernia. Unremarkable soft tissues. No acute fracture. IMPRESSION: 1. Lobar, segmental and subsegmental pulmonary emboli of the right middle and lower lobes. No evidence of right heart strain. 2. Bilateral subpleural predominant groundglass and consolidative opacities are compatible with viral pneumonia. 3. Trace right pleural effusion. 4. Small hiatal hernia. 06/01/21 06:21 US venous doppler LE BI Routine There is normal compressibility, flow, and augmentation within the right lower extremity deep venous structures. One of the duplicated superficial femoral veins on the left demonstrates partially occlusive thrombus within the midportion of the vessel. Partially occlusive thrombus of the popliteal vein and one of the duplicated posterior tibial veins. IMPRESSION: 1. Partially occlusive deep venous thrombi of the left lower extremity 2. No right lower extremity DVT. Hospital Course (1) Pulmonary embolism: Acute Left Leg DVT and right sided PE. 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 Rides long distances on a regular basis up until this year, but still rides 10 miles regularly. Was started on heparin drip. Copay for apixaban appeared cost prohibitive for patient Was started on warfarin. INR is 1.4 today Discharged on lovenox -warfarin bridge Needs follow up with Anticoagulation clinic within the week Provided education on warfarin basics, meds/diet interaction Needs at least 3 months of anticoagulation To follow up with PCP (2) Pneumonia: Discharged on augmentin and doxycycline to complete treatment (3) Hyperlipidemia: Cont crestor per home regimen. Total Time Total Time Spent Total Time Spent (In Minutes): 35 Total Time Includes: Examination of the Patient, Discharge Planning, Medication Reconciliation and Other Discharge Plan Discharge Items Patient Disposition: Home - Self-Care Reason For Visit: Shortness of breath Discharge Diagnosis: Acute pulmonary embolism Pneumonia Condition on Discharge: Good Activity: Resume your previous activity Non-emergency contact: Primary Care Provider Call non-emergency contact if: you have any medication questions Follow-up/Referrals: Pablo Pratt DO [Primary Care Provider] - Diet: Heart Healthy Addtl Attending Provider Instructions: Mr Worrell You came to the hospital complaining of feeling unwell, cough and some chest pain. You were evaluated and found to have a pneumonia as well as right-sided pulmonary embolism [blood clots] You were started on blood thinners and antibiotics. You are being discharged on warfarin with a Lovenox bridge. It is very important that you follow-up with anticoagulation clinic as we discussed. You will continue to get blood test called INR with the goal of 2-3 and based on those your warfarin dose may be adjusted as needed. Please ensure to notify any doctor prescribing any new medications or planning a procedure that you are on warfarin. Please stop taking naproxen or NSAIDs. Please ensure follow-up with your primary care doctor. It was a pleasure taking care of you Pending Studies at Discharge: No Stand-Alone Forms: My [facility], Smoking Cessation Medications and DC Order Prescriptions: New doxycycline hyclate 100 mg Capsule 100 mg PO BID@1000,2200 2 Days Qty: 4 RF: 0 amoxicillin-pot clavulanate [Augmentin] 875-125 mg Tablet 1 tab PO BIDM 2 Days Qty: 4 RF: 0 enoxaparin [Lovenox] 80 mg/0.8 mL Syringe 70 mg SC Q12H 5 Days Qty: 7 RF: 0 acetaminophen 325 mg Tablet 650 mg PO Q4H PRN (Reason: pain) Qty: 50 RF: 0 warfarin 5 mg Tablet 5 mg PO DAILY@1600 Qty: 30 RF: 0 Continued rosuvastatin 10 mg tablet 10 mg PO DAILY RF: 0 Discontinued naproxen sodium [Aleve] 220 mg Tablet 220 - 440 mg PO DAILY PRN (Reason: Pain) RF: 0 amoxicillin 500 mg tablet 2,000 mg PO UD RF: 0 Discharge Orders: Discharge Order (Routine); Ordered 06/03/21 Ordered By: Maureen Khanna/Other Patient Handouts: Using Blood Thinners (Anticoagulants), What to Know When TakingWarfarin Admission Data Admit Date/Time: 06/01/21 04:59 Attending Provider: Maureen Aguero I. Admit Provider: Bhupinder Quintanilla Primary Care Provider: Pablo Pratt Other Providers: Bhupinder Quintanilla ; Zo Aparicio Other Interventions: Discharge Summary Assessment (RN) Last Done: 06/03/21 13:06
== END 2021-06-03 14:38 | disposition home or self-care (01) ==
LOC: ED 23:22 → SUATTDRO 06-01 04:59 → INTOOBSV 06-01 04:59 → EDINP 06-01 04:59 → 2N 06-01 06:20